=== PATIENT | male | born 1960 | race Caucasian/White ===

== ENCOUNTER 2025-03-15 09:15 | Outpatient (CLI) | payer OTHER, MEDICARE, SELFPAY ==
--- OUTSIDE RECORDS SUMMARY | 2025-03-15 09:46 | XMS_ITS | Encounter Summary ---
Author Organization [facility] Address [address] [place] [address] Care Team Providers Care Link Machine Operator Name Role Phone None, Provider Primary Care Provider Unavaila Vitaliy Torre MD Primary Care Provider [phone] Shereen Allison MD Unavailable Unavailabl e Fiona Gutierrez MD Unavailable Encounter Details Date Type Department Care Team (Late st Contact Info) Description 11/02/2017 Abstract [facility] CONVERSION [address] [place], [place] [id number] , Generic ConversionMD Social History Tobacco Use Types Packs/Day Years Used Date Smoking Tobacco: Never Assessed Sex and Gender Information Value Date Recorded Sex Assigned at Not on file Legal Sex Male 11:12 PM [employer] Gender Identity Not on file Sexual Orientation Not on file documented as of this encounter Plan of Treatment Not on file documented as of this encounter Visit Diagnoses Not on filedocumented in this encounter Care Teams Link Machine Operator Relationship Specialty Start Date End Date None, Provider, PCP - General 12/17/18 04/27/21 Vitaliy Garrett MD [address] [place] [phone] PCP - General INTERNAL MEDICINE 04/28/21 Shereen Allison MD [address] [place] [phone] Consulting Physician CARDIOVASCULAR DISEASE 04/28/2106/19 Fiona Gutierrez MD [address] [place] [phone] Consulting Physician CARDIOVASCULAR DISEASE 07/08/24 documented as of this encounter
--- OUTSIDE RECORDS SUMMARY | 2025-03-15 09:46 | XMS_ITS | Encounter Summary ---
Author Organization [facility] Address [address] [place] [address] Care Team Providers Care President Educational Institution Name Role Phone Unavailable Primary Care Provider Unavailabl e Encounter Details Date Type Department Care Team (Late st Contact Info) Description 08/15/2020 Lab Requisition [facility] [address] [facility] [place] [id number] Rick Barreto Jr., MD [address] [facility] [address] [place] [address] Social History Tobacco Use Types Packs/Day Years Used Date Smoking Tobacco: Never Assessed Sex and Gender Information Value Date Recorded Sex Assigned at Not on file Legal Sex Male 12:22 PM CDT Gender Identity Not on file Sexual Orientation Not on file documented as of this encounter Plan of Treatment Not on file documented as of this encounter Procedures Procedure Name Priority Date/Time Associated Diagnosis Comments DERMATOPATHOLOGY Routine 08/10/2020 12:0 0 AM [employer] documented in this encounter Results * DERMATOPATHOLOGY (08/10/2020 12:00 AM DEVIL [facility]ENDER) Case Report Dermatopathology Report Case: [id number] Authorizing Provider: Rick Barreto Jr., MD Collected: 08/10/2020 12:00 AM Ordering Location: [facility] Received: 08/15/2020 12:01 PM Pathologist: Sonia Snow MD Specimen: Skin, right ulnar dorsal hand 0 4:28 PM [facility] DERMATOPATH[facility]Y LABORATORY Final Diagnosis Specimen A. 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 Check margins. Previous Bx: [id number]. . 0 4:28 PM [facility]ORAT[facility] Gross Description Specimen A: Received is one formalin filled container labeled with the patient's name and designated right ulnar dorsal hand.The specimen consists of an ellipse measuring 10w52l0gs and is oriented with the notch at the 12 o'clock position labeled on the requisition as notch at 12 o'clock. The epidermal surface consists of a centrally located [id number] lesion. The 12 to 6 o'clock margin is inked green. The 6 o'clock to 12 o'clock margin is inked black. The 12 o'clock tip is submitted in cassette 1. The 6 o'clock tip is submitted in cassette 2. The remainder of the ellipse is serially sectioned and submitted in cassettes 3-4. Jar 0. 0 4:28 PM [facility] DER[facility]Y [facility]OR[facility]ORY Microscopic Description Specimen A. SKIN, right ulnar dorsal hand: The epidermis shows parakeratosis, full thickness disorderly maturation of keratinocytes, mitoses at different levels, and dyskeratotic cells. This lesion is not present at the margin of the specimen. There are fibroblasts and collagen bundles oriented parallel to the skin surface with elongated blood vessels, some of which are oriented perpendicular to the skin surface. 0 4:28 PM [facility]ERMATOPATHOLOGY [facility]ORATORY Disclaimer An external and internal positive and negative controls are appropriate for the histochemical, immunohistochemical and immunofluorescence stain(s) in this case (if any), except where stated explicitly. The performance characteristics of the stain(s) cited in this report were developed and its performance characteristic determined by the Dermatopathology Laboratory at [facility], directed by Dr. Janeth Snow. These tests need not be, and therefore are not, approved by the [place] Food and Drug Administration. The tests are used for clinical purposes. Billing Codes Specimen Charges Stain Charges 640[address] 1 0 4:28 PM [facility]MAT[facility]ATH[facility]Y [facility]ORATORY Embedded Images 0 4:28 PM [facility]Y LABOR[facility]ORY Pathology/Cytolog y TISSUE SPECIMEN FROM SKIN / Unknown 08/10/2020 08/15/2020 12:01 PM DEVIL T[employer]ER us Rick Barreto Jr., MD LAB - PATHOLOGY/CYTOLOG Y ORDERABLES Final Result DERMATOPATHOLOGY LABORATORY [facility] - Department of Dermatology [facility] [address] [place] [address], [address] [phone] documented in this encounter Visit Diagnoses Not on filedocumented in this encounter
--- OUTSIDE RECORDS SUMMARY | 2025-03-15 09:46 | XMS_ITS | Encounter Summary ---
Author Organization [facility] Address [address] [place] [address] Care Team Providers Care Powerhouse Mechanic Apprentice Name Role Phone Unavailable Primary Care Provider Unavailabl e Encounter Details Date Type Department Care Team (Late st Contact Info) Description 02/12/2024 Lab Requisition [facility] - DermPath Lab [address] [place] [id number] Rick Barreto Jr., MD [address] [facility] [address] [place] [address] Social History Tobacco Use Types Packs/Day Years [...] Priority Date/Time Associated Diagnosis Comments DERMATOPATHOLOGY Routine 02/11/2024 12:0 0 AM CDT documented in this encounter Results * DERMATOPATHOLOGY (02/11/2024 12:00 AM CDT) Case Report Dermatopathology Report Case: [id number] Authorizing Provider: Rick Barreto Jr., MD Collected: 02/11/2024 12:00 AM Ordering Location: [facility] Physician [facility] - Received: 02/12/2024 12:52 PM DermPath Lab Pathologist: Keshia Dominguez MD Specimens: A) - Skin, right ulnar dorsal hand B) - Skin, left medial elbow 3:51 PM CDT DERMATOPATHOLOGY LABORATORY Final Diagnosis Specimen A. SKIN, right ulnar dorsal hand: DERMAL SCAR RESIDUAL SQUAMOUS CELL CARCINOMA NOT IDENTIFIED (L90.5) ACTINIC KERATOSIS; NOT PRESENT AT MARGIN (L57.0) Specimen B. SKIN, left medial elbow: SQUAMOUS CELL CARCINOMA, WELL DIFFERENTIATED (C44.629) 4 3:51 PM CDT DERMATOPATHOLOGY LABORATORY at 1551 CDT Clinical History A: SCC. Check margins B: SCC 4 3:51 PM CDT DERMATOPATHOLOGY LABORATORY Gross Description Specimen A: Received is one formalin filled container labeled with the patient's name and designated right ulnar dorsal hand.The specimen consists of an ellipse measuring 55h93c5 mm and is oriented with the suture/notch at the 12 o'clock position labeled on the requisition as notch. The 12 to 6 o'clock margin is inked green. The 6 o'clock to 12 o'clock margin is inked red. The 12 o'clock tip is submitted in cassette 1. The 6 o'clock tip is submitted in cassette 2. The remainder of the ellipse is serially sectioned and submitted in cassettes 3-4. Jar 0. Specimen B: Received is one formalin filled container labeled with the patient's name and designated left medial elbow. The specimen consists of a shave biopsy measuring 42h84p4 mm. Jar 0. 4 3:51 PM CDT DERMATOPATHOLOGY LABORATORY Microscopic Description Specimen A. SKIN, right ulnar dorsal hand: There are fibroblasts and collagen bundles oriented parallel to the skin surface. There are elongated blood vessels, some of which are oriented perpendicular to the skin surface. No residual squamous cell carcinoma is identified. Additionally, there is focal parakeratosis. The lower half of the epidermis shows disorderly maturation of keratinocytes with nuclear pleomorphism. This lesion is not present at the margin of the specimen. Specimen B. SKIN, left medial elbow: Sections show digitated epidermal hyperplasia with hypergranulosis in the dells between papillations containing a proliferation of atypical keratinocytes. 4 3:51 PM CDT DERMATOPATHOLOGY LABORATORY Disclaimer An external and internal positive and negative controls are appropriate for the histochemical, immunohistochemical and immunofluorescence stain(s) in this case (if any), except where stated explicitly. The performance characteristics of the stain(s) cited in this report were developed and its performance characteristic determined by the Dermatopathology Laboratory at [facility], directed by Dr. Janeth Snow. These tests need not be, and therefore are not, approved by the [place] Food and Drug Administration. The tests are used for clinical purposes. Billing Codes Specimen Charges Stain Charges 55428 55934 1 1 4 3:51 PM CDT DERMATOPATHOLOGY LABORATORY Embedded Images 4 3:51 PM CDT DERMATOPATHOLOGY LABORATORY Pathology/Cytology TISSUE SPECIMEN FROM SKIN / Unknown 02/11/2024 02/12/2024 12:52 PM CDT Miscellaneous samples (specimen) TISSUE SPECIMEN FROM SKIN / Unknown 02/11/2024 02/12/2024 12:52 PM CDT Rick Barreto Jr., MD LAB - PATHOLOGY/CYTOLOG Y ORDERABLES Final Result DERMATOPATHOLOGY LABORATORY [facility] - Department of Dermatology [facility] Medicine [address] [place] [address], [address] [phone] documented in this encounter Visit Diagnoses Not on filedocumented in this encounter
--- OUTSIDE RECORDS SUMMARY | 2025-03-15 09:46 | XMS_ITS | Clinical Summary ---
Author Organization [facility] Address [address] [place] [address] Care Team Providers Care Chinese Language Professor Name Role Phone Unavailable Primary Care Provider Unavailabl e Source Comments [facility],non-owned Affiliates and Associated Physician Practices is amultiple site organization consisting of ambulatory clinics and hospital sitesin [place], [place], [place] and [place]. This disclosure is being madepursuant to the Care Everywhere program and may not contain all information available regarding this patient. Last updated 18.[facility] Social History Tobacco Use Types Packs/Day Years Used Date Smoking Tobacco: Never Assessed Sex and Gender Information Value Date Recorded Sex Assigned at Not on file Legal Sex Male 12:22 PM CDT Gender Identity Not on file Sexual Orientation Not on file Plan of Treatment Health Maintenance Due Date Last Done Comments COLOGUARD (AGES 45-75) - COL ON CA SCREENING 1962 COLON MONITORING 1962 COLONOSCOPY - COLON CA SCREENING 1962 CT COLONOGRAPHY - COLON CA SCREENING 1962 Colorectal Cancer Screening 1962 FIT - COLON CA SCREENING 1962 FLEX SIG - COLON CA SCREENING 1962 LIPID TESTING 1962 MEDICARE AWV 12 MONTHS 1962 HIV SCREENING 1977 HEPATITIS C SCREENING 11/18/1980 DTAP/TDAP/TD VACCINES (1 - Tdap) 1981 PNEUMOCOCCAL VACCINE 50+ (1 of 1 - PCV) 2012 ZOSTER VACCINE (1 of 2) 2012 COVID-19 VACCINE ( - 2023-2 5 season) 2024 DEPRESSION SCREENING 08/19/2024 INFLUENZA VACCINE (#1) 2025 Respiratory Syncytial Virus (RSV) Vaccine Pt: or over 60 yrs (1 - 1-dose 75+ series) 2037 HEPATITIS B VACCINE Aged Out No longe r eligible based on patient's age to complete this topic HIB VACCINE Aged Out No longer eligi ble based on patient's age to complete this topic HPV VACCINE Aged Out No longer eligi ble based on patient's age to complete this topic MENINGOCOCCAL (Group B) VACC INE SHARED DECISION-MAKING Aged Out No longer eligibl e based on patient's age to complete this topic MENINGOCOCCAL GROUPS A/C/Y/W VACCINE Aged Out No longer eligible b ased on patient's age to complete this topic Insurance AET MEDICARE
--- OUTSIDE RECORDS SUMMARY | 2025-03-15 09:46 | XMS_ITS | Encounter Summary ---
Author Organization [facility] Address [address] [place] [address] Care Team Providers Care Assembly Department Supervisor Name Role Phone Unavailable Primary Care Provider Unavailabl e Encounter Details Date Type Department Care Team (Late st Contact Info) Description 07/07/2020 Lab Requisition [facility] DermPath Lab [address] [facility] [place] [phone] Rick Barreto Jr., MD [address] [facility] [address] [place] [address] Social History Tobacco Use Types Packs/Day Years [...] Priority Date/Time Associated Diagnosis Comments DERMATOPATHOLOGY Routine 07/06/2020 12:0 0 AM INTERNATIONAL MARKETING SPECIALIST documented in this encounter Results * DERMATOPATHOLOGY (07/06/2020 12:00 AM INTERNATIONAL MARKETING SPECIALIST) Case Report Dermatopathology Report Case: [id number] Authorizing Provider: Rick Barreto Jr., MD Collected: 07/06/2020 12:00 AM Ordering Location: [facility] DermPath Lab Received: 07/07/2020 12:59 PM Pathologist: Mansi Dominguez MD Specimens: A) - Skin, right distal radial dorsal forearm B) - Skin, right radial dorsal hand C) - Skin, right ulnar dorsal hand 0 6:46 PM INTERNATIONAL MARKETING SPECIALIST DERMATOPATHOLOGY LABORATORY Final Diagnosis Specimen A. SKIN, right distal radial dorsal forearm: DERMAL SCAR RESIDUAL SQUAMOUS CELL CARCINOMA NOT IDENTIFIED (L90.5) Specimen B. SKIN, right radial dorsal hand: SQUAMOUS CELL CARCINOMA IN SITU (VALENCIA'S DISEASE) (D04.61) Specimen C. SKIN, right ulnar dorsal hand: SQUAMOUS CELL CARCINOMA IN SITU, VERRUCOUS-HYPERTROP HIC TYPE; PRESENT AT THE BASE OF THE SPECIMEN (D04.61) (see microscopic description and comment) 0 6:46 PM [facility] at 1845 INTERNATIONAL MARKETING SPECIALIST Clinical History A: Squamous cell carcinoma. Check margins. Previous Bx: [id number]. B-C: Squamous cell carcinoma vs actinic keratosis. . 0 6:46 PM [facility] Gross Description Specimen A: Received is one formalin filled container labeled with the patient's name and designated right distal radial dorsal forearm.The specimen consists of an ellipse measuring 94b85c8tm and is oriented with the notch at the 9 o'clock position labeled on the requisition as notch at 9 o'clock. The epidermal surface consists of a centrally located 8x8mm previous biopsy site. The 12 to 6 o'clock margin is [...] with the patient's name and designated right radial dorsal hand. The specimen consists of a shave biopsy measuring 40q5l0cq. Jar 0. Specimen C: Received is one formalin filled container labeled with the patient's name and designated right ulnar dorsal hand. The specimen consists of a shave biopsy measuring 99z0p0jn. Jar 0. 0 6:46 PM [facility] Microscopic Description Specimen A. SKIN, right distal radial dorsal forearm: There are fibroblasts and collagen bundles oriented parallel to the skin surface. There are elongated blood vessels, some of which are oriented perpendicular to the skin surface. No residual squamous cell carcinoma is identified. Specimen B. SKIN, right radial dorsal hand: The epidermis shows parakeratosis, full thickness disorderly maturation of keratinocytes, mitoses at different levels, and dyskeratotic cells. Specimen C. SKIN, right ulnar dorsal hand: The epidermis is acanthotic and shows full thickness disorderly maturation of keratinocytes, mitoses at different levels, and dyskeratotic cells. There is overlying parakeratosis and hyperkeratosis. The lesion extends to the base of the biopsy. COMMENT: An invasive squamous cell carcinoma cannot be ruled out. 0 6:46 PM INTERNATIONAL MARKETING SPECIALIST DERMATOPATHOLOGY LABORATORY Disclaimer An external and internal positive and negative controls are appropriate for the histochemical, immunohistochemical and immunofluorescence stain(s) in this case (if any), except where stated explicitly. The performance characteristics of the stain(s) cited in this report were developed and its performance characteristic determined by the Dermatopathology Laboratory at [facility], directed by Dr. Janeth Snow. These tests need not be, and therefore are not, approved by the [place] Food and Drug Administration. The tests are used for clinical purposes. Billing Codes Specimen Charges Stain Charges 00339 80486 42503 1 1 1 0 6:46 PM INTERNATIONAL MARKETING SPECIALIST DERMATOPATHOLOGY LABORATORY Embedded Images 0 6:46 PM INTERNATIONAL MARKETING SPECIALIST DERMATOPATHOLOGY LABORATORY Pathology/Cytology TISSUE SPECIMEN FROM SKIN / Unknown 07/06/2020 07/07/2020 12:59 PM INTERNATIONAL MARKETING SPECIALIST Miscellaneous samples (specimen) TISSUE SPECIMEN FROM SKIN / Unknown 07/06/2020 07/07/2020 12:59 PM INTERNATIONAL MARKETING SPECIALIST Miscellaneous samples (specimen) TISSUE SPECIMEN FROM SKIN / Unknown 07/06/2020 07/07/2020 12:59 PM INTERNATIONAL MARKETING SPECIALIST us Rick Barreto Jr., MD LAB - PATHOLOGY/CYTOLOG Y ORDERABLES Final Result DERMATOPATHOLOGY LABORATORY [facility] - Department of Dermatology [address], [address]rd [place] [address], [facility] [phone] documented in this encounter Visit Diagnoses Not on filedocumented in this encounter
--- OUTSIDE RECORDS SUMMARY | 2025-03-15 09:46 | XMS_ITS | Encounter Summary ---
Author Organization [facility] Address [address] [place] [address] Care Team Providers Care Chicken And Fish Cleaner Name Role Phone Unavailable Primary Care Provider Unavailabl e Encounter Details Date Type Department Care Team (Late st Contact Info) Description 04/15/2024 Lab Requisition [facility] - DermPath Lab [address] [facility] [place] [phone] Rick Barreto Jr., MD [address] [facility] [address] [facility] [address] [place] [address] Social History Tobacco Use Types Packs/Day Years [...] Priority Date/Time Associated Diagnosis Comments DERMATOPATHOLOGY Routine 04/14/2024 12:0 0 AM CDT documented in this encounter Results * DERMATOPATHOLOGY (04/14/2024 12:00 AM CDT) Case Report Dermatopathology Report Case: [id number] Authorizing Provider: Rick Barreto Jr., MD Collected: 04/14/2024 12:00 AM Ordering Location: [facility] Physician [facility] - Received: 04/15/2024 01:09 PM DermPath Lab Pathologist: Keshia Dominguez MD Specimen: Skin, left medial elbow 4:14 PM CDT DERMATOPATHOLOGY LABORATORY Final Diagnosis Specimen A. SKIN, left medial elbow: DERMAL SCAR RESIDUAL SQUAMOUS CELL CARCINOMA NOT IDENTIFIED (L90.5) INCIDENTAL BENIGN VERRUCOUS KERATOSIS (L82.1) 4 4:14 PM CDT DERMATOPATHOLOGY LABORATORY at 1614 CDT Clinical History Squamous Cell Carcinoma Check margin , 4:14 PM CDT DERMATOPATHOLOGY LABORATORY Gross Description Specimen A: Received is one formalin filled container labeled with the patient's name and designated left medial elbow.The specimen consists of an ellipse measuring 11u99d5 mm and is oriented with the suture/notch at the 12 o'clock position labeled on the requisition as Orientation notch. The 12 to 6 o'clock margin is inked green. The 6 o'clock to 12 o'clock margin is inked red. The 12 o'clock tip is submitted in cassette 1. The 6 o'clock tip is submitted in cassette 2. The remainder of the ellipse is serially sectioned and submitted in cassettes 3 -4. Jar 0. 4:14 PM CDT DERMATOPATHOLOGY LABORATORY Microscopic Description Specimen A. SKIN, left medial elbow: There are fibroblasts and collagen bundles oriented parallel to the skin surface. There are elongated blood vessels, some of which are oriented perpendicular to the skin surface. No residual squamous cell carcinoma is identified. Additionally, there is a lesion composed of hyperkeratosis, papillomatosis, hypergranulosis, and acanthosis. These histological findings can be seen in a verruca vulgaris or a seborrheic keratosis. 4:14 PM CDT DERMATOPATHOLOGY LABORATORY Disclaimer An external and internal positive and negative controls are appropriate for the histochemical, immunohistochemical and immunofluorescence stain(s) in this case (if any), except where stated explicitly. The performance characteristics of the stain(s) cited in this report were developed and its performance characteristic determined by the Dermatopathology Laboratory at [facility], directed by Dr. Janeth Snow. These tests need not be, and therefore are not, approved by the [place] Food and Drug Administration. The tests are used for clinical purposes. Billing Codes Specimen Charges Stain Charges 72707 1 4:14 PM CDT DERMATOPATHOLOGY LABORATORY Embedded Images 4:14 PM CDT DERMATOPATHOLOGY LABORATORY Pathology/Cytolog y TISSUE SPECIMEN FROM SKIN / Unknown 04/14/2024 04/15/2024 1:09 PM CDT us Rick Barreto Jr., MD LAB - PATHOLOGY/CYTOLOG Y ORDERABLES Final Result DERMATOPATHOLOGY LABORATORY [facility] - Department of Dermatology [facility] Medicine [address] [place] [address], [address] [phone] documented in this encounter Visit Diagnoses Not on filedocumented in this encounter
--- OUTSIDE RECORDS SUMMARY | 2025-03-15 09:46 | XMS_ITS | Encounter Summary ---
Author Organization [facility] Address [address] [place] [address] Care Team Providers Care Wood Turning Lathe Operator Name Role Phone Ismael Smith MD Primary Care Provider [phone] Encounter Details Date Type Department Care Team (Latest Contact Info) Description 09/16/2002 Outpatient Historical [facility] Ismael Smith MD [address] [place] [address] SURGERY FOLLOWUP, OTHER (Primary Dx) Social History Tobacco Use Types Packs/Day Years Used Date Smoking Tobacco: Never Assessed Sex and Gender Information Value Date Recorded Sex Assigned at Not on file Legal Sex Male 4:52 AM DRAFTER (CAD) ELECTRICAL Gender Identity Not on file Sexual Orientation Not on file documented as of this encounter Plan of Treatment Not on file documented as of this encounter Visit Diagnoses Diagnosis Follow-up examination, following other surgery- Primary documented in this encounter Care Teams Wood Turning Lathe Operator Relationship Specialty Start Date End Date Ismael Smith MD [address] [place] [address] PCP - General 09/16/02 documented as of this encounter
--- OUTSIDE RECORDS SUMMARY | 2025-03-15 09:46 | XMS_ITS | Data Portability ---
Author Organization [facility], [address] [facility] Neurology ([place]) Address [address]th [place] [address] Care Team Providers Care Laser Set Up Operator Name Role Phone JENNI VENTURA Primary Care Provider [phone] Assessment Encounter Date Assessment Date Assessment LastModified by Organization Details LastModified Time 07/24/2024 07/24/2024 Patient is a 63-year-old male who has had a previous umbilical hernia repair. Patient with a blue stitch identified extruding from the skin. Stitch was removed in the office today. Patient to follow-up on an as-needed basis. [email or web address] Not available 07/27/2024 00:23:33 Plan of Treatment Reminders Order Date Submit Date Provider Last Modified By Organization Details Last Modified Time Details Appointments None record ed. Lab None record ed. Referral None record ed. Procedures None record ed. Surgeries None record ed. Imaging None record ed. Medication Orders None record ed. Patient TargetsNo targets recorded. Patient InstructionsNo instructions recorded. Reason for Referral None Reported. Medical Equipment None Reported. Vitals Date Recorded Body weight Heart rate Oxygen saturation Oxygen saturation in Arterial blood by Pulse oximetry Respiratory rate Systolic And Diastolic Provider Name and Address Organization Details Last Updated DateTime 4 52368.0 7 g 96 /min 97 % 97 % 18 /min 128/70 mm[Hg] Kimberly Madrigal [facility] 4 10:30:26 Social History None recorded. Functional Status None recorded. Mental Status None recorded. Family History Nothing Reported. Medical History No medical history recorded. Past Encounters Encounter ID Performer Location Encounter Start Date Encounter Closed Date Diagnosis/Indication Diagnosis SNOMED-CT Code Diagnosis ICD10 Code Diagnosis Note [id number] [facility] ([place] [address] [place] [address] 07/24/2024 10:17:57 07/24/2024 13:01:53 History of abdominal hernia 605074112 Z87.19 Health Concerns Section Related Observation LastModified by Organization Detai ls LastModified Time None Recorded Concern Status LastModified by Organization Details LastModified Time None Recorded Advance Directives Directive None Recorded Payers Insurance Date Sequence Insurance Name Policy Number Policy Marroquin Covered Member ID Marroquin Member ID Guarantor Name 07/28/2024 1 [id number] Salvador W Adrian [id number] Salvador W Adrian 07/24/2024 2 [place] Salvador W Adrian [id number] Salvador W Darian 07/28/2024 [place] - [place] - FQHC Salvador W Adrian [id number] Salvador Figueroa Adrian
--- OUTSIDE RECORDS SUMMARY | 2025-03-15 09:46 | XMS_ITS | Clinical Summary ---
Author Organization [facility] Address [address] [facility], [place] [address] Phone Care Team Providers Care Sheet Metal Layout Mechanic Name Role Phone Vitaliy Garrett MD Primary Care Provider [phone] Roby Gaxiola MD Unavailable Allergies No known active allergies Medications azaTHIOprine (IMURAN) 50 MG Tablet Take 50 mg by mouth daily. Active amLODIPine (NORVASC) 10 MG Tablet Take 10 mg by mouth daily. Active traMADol (ULTRAM) 50 MG Tablet Take 50 mg by mouth every 6 hours as needed for Pain. Active HYDROcodone-ena taminophen (NORCO) 10-325 MG Tablet Take 1 Tab by mouth every 6 hours as needed for Pain. Active inFLIXimab (REMICADE) 100 MG Recon Soln 5 mg/kg by Intravenous route once. FOLLOW STANDING ORDER PROTOCOL 8 weeks Active Active Problems Problem Noted Date Diagnosed Date Sarcoid 06/10/2017 Essential (primary) hypertension 06/10/2017 Chronic ulcerative colitis without complication 06/10/2017 Family History Medical History Relation Name Comments Cancer Father Breast Cancer Mother Relation Name Status Comments Father Mother Social History Tobacco Use Types Packs/Day Years Used Date Smoking Tobacco: Former Smokeless Tobacco: Never Tobacco Cessation:Counseling Given: Not Answered Alcohol Use Standard Drinks/Week Comments No 0 (1 standard drink = 0.6 oz pur e alcohol) Sexually Active Control Partners Comments Not Currently Sex and Gender Information Value Date Recorded Sex Assigned at Not on file Legal Sex Male 1:36 PM CDT Gender Identity Not on file Sexual Orientation Not on file Last Filed Vital Signs Vital Sign Reading Time Taken Comments Blood Pressure 114/60 04/08/2023 2:49 PM CDT Pulse 99 04/08/2023 2:49 PM CDT Temperature 36.3 C (97.3 F) 04/08/2023 2:49 PM CDT Respiratory Rate 14 04/08/2023 2:49 PM CDT Oxygen Saturation 96% 04/08/2023 2:49 PM CDT Inhaled Oxygen Concentration - - Weight 76.7 kg (169 lb 3.2 oz) 04/08/2023 2:49 P M CDT Height 182.9 cm (6') 04/08/2023 2:49 PM CDT Body Mass Index 22.95 04/08/2023 2:49 PM CDT Plan of Treatment Health Maintenance Due Date Last Done Comments Hepatitis C Virus (HCV) Screening 1962 Zoster Immunization (1 of 2) 1981 Cologuard 11/24/2007 Colonoscopy 11/24/2007 Colorectal Cancer Screening 11/24/2007 Immunochemical Fecal Occult Blood 11/24/2007 Pneumococcal Immunization (5 0+ years) (1 of 1 - PCV) 2012 PSA Discussion 2017 Respiratory Syncytial Virus (RSV) Immunization (Adult) (1 - Risk 60-74 years 1-dose series) 2022 SARS-COV-2 Immunization ( season) 2024 07/19/2021, 11/16/2020 Influenza Immunization (#1) 2025 DTaP/Tdap/Td Immunization Discontinued 2022, 02/01/2017 TdaP Immunization Completed 02/08/2023, 02/01/2017 Hepatitis B Immunization Aged Out No longer eligible based on patient's age to complete this topic Human Papillomavirus (HPV) Immunization Aged Out No longer eligible based on patient's age to complete this topic Meningococcal Immunization (ACWY) Aged Out No longer eligible based on patient's age to complete this topic Rotavirus Immunization Aged Out No lo nger eligible based on patient's age to complete this topic Insurance MEDICARE [facility] Care Teams Sheet Metal Layout Mechanic Relationship Specialty Start Date End Date Vitaliy Garrett MD [address] [place] [id number] PCP - General Internal Medicine 06/10/17 Roby Gaxiola MD [address] [place] [id number] Consulting Physician Pulmonary Disease 05/25/23
--- OUTSIDE RECORDS SUMMARY | 2025-03-15 09:46 | XMS_ITS | Encounter Summary ---
Author Organization [facility] Address [address] [place] [address] Care Team Providers Care Account Development Manager Name Role Phone Unavailable Primary Care Provider Unavailabl e Encounter Details Date Type Department Care Team (Late st Contact Info) Description 10/16/2023 Lab Requisition [facility] - DermPath Lab [address] [facility] [place] [id number] Rick Barreto Jr., MD [address] [facility] [address] [place] [address] Social History Tobacco Use Types Packs/Day Years [...] Priority Date/Time Associated Diagnosis Comments DERMATOPATHOLOGY Routine 10/15/2023 12:0 0 AM [facility]ER documented in this encounter Results * DERMATOPATHOLOGY (10/15/2023 12:00 AM [facility]ER) Case Report Dermatopathology Report Case: [id number] Authorizing Provider: Rick Barreto Jr., MD Collected: 10/15/2023 12:00 AM Ordering Location: [facility] DermPath Lab Received: 10/17/2023 06:45 AM Pathologist: Keshia Dominguez MD Specimens: A) - Skin, left mid-upper back B) - Skin, right ulnar dorsal hand 12:12 PM [facility] DERMATOPATHOLOGY LABORATORY Final Diagnosis Specimen A. SKIN, left mid-upper back: BASAL CELL CARCINOMA, SUPERFICIAL MULTIFOCAL (C44.519) Specimen B. SKIN, right ulnar dorsal hand: SQUAMOUS CELL CARCINOMA, WELL DIFFERENTIATED (C44.622) 12:12 PM [facility]MATOP[facility]ORATORY at 1212 [facility]ER Clinical History A: Basal Cell Carcinoma. B: Squamous Cell Carcinoma 12:12 PM [facility] DERMATOPATHOLOGY LABORATORY Gross Description Specimen A: Received is one formalin filled container labeled with the patient's name and designated left mid-upper back. The specimen consists of a shave biopsy measuring 10x8x1 mm. Jar 0. Specimen B: Received is one formalin filled container labeled with the patient's name and designated right ulnar dorsal hand. The specimen consists of a shave biopsy measuring 10x9x3 mm. Jar 0. 12:12 PM [facility] DERMATOPATHOLOGY LABORATORY Microscopic Description Specimen A. SKIN, left mid-upper back: Attached to the undersurface of the epidermis, there are small aggregates of basaloid cells with a high nuclear to cytoplasmic ratio and peripheral palisading. Specimen B. SKIN, right ulnar dorsal hand: Sections show a papillated to crateriform proliferation of atypical keratinocytes with central and overlying ortho- and parakeratosis. Keratinocytes with atypical nuclei are scattered throughout the proliferation. 12:12 PM [facility] DERMATOPATHOLOGY LABORATORY Disclaimer An external and internal positive and negative controls are appropriate for the histochemical, immunohistochemical and immunofluorescence stain(s) in this case (if any), except where stated explicitly. The performance characteristics of the stain(s) cited in this report were developed and its performance characteristic determined by the Dermatopathology Laboratory at [facility], directed by Dr. Janeth Snow. These tests need not be, and therefore are not, approved by the [place] Food and Drug Administration. The tests are used for clinical purposes. Billing Codes Specimen Charges Stain Charges 11236 72193 1 1 12:12 PM [facility] DERMATOPATHOLOGY LABORATORY Embedded Images 12:12 PM [facility] DERMATOPATHOLOGY LABORATORY Pathology/Cytology TISSUE SPECIMEN FROM SKIN / Unknown 10/15/2023 10/17/2023 6:45 AM [facility] Miscellaneous samples (specimen) TISSUE SPECIMEN FROM SKIN / Unknown 10/15/2023 10/17/2023 6:45 AM [facility] Rick Barreto Jr., MD LAB - PATHOLOGY/CYTOLOG Y ORDERABLES Final Result DERMATOPATHOLOGY LABORATORY [facility] - Department of Dermatology [facility] Medicine [address] [place] [address], [address] [phone] documented in this encounter Visit Diagnoses Not on filedocumented in this encounter
--- OUTSIDE RECORDS SUMMARY | 2025-03-15 09:46 | XMS_ITS | Clinical Summary ---
Author Organization [facility] Address [address] [place] [address] Care Team Providers Care Photographic Artist Name Role Phone Vitaliy Garrett MD Primary Care Provider Fiona Gillis MD Unavailable Allergies Active Allergy Reactions Criticality Noted Date Comments Isosorbide Nitrate Unknown 05/10/2021 Medications HYDROcodone-a cetaminophen 10-325 MG tablet Take 1 tablet by mouth every 4 (four) hours as needed. 10/25/19 21 Active azaTHIOprine 50 MG tablet Take 2 tablets (100 mg total) by mouth daily. Active sildenafil 100 MG tablet TAKE ONE TABLET BY MOUTH EACH DAY NEEDED APPROXIMATELY 1 HOUR PRIOR TO SEXUAL ACTIVITY 01/11/20 21 Active omeprazole 40 MG capsule Take 1 capsule (40 mg total) by mouth daily. Take before a meal 01/11/20 21 Active traMADol 50 MG tablet Take as directed 10/25/19 21 Active inFLIXimab (REMICADE) 100 MG injection Inject 5 mg/kg into the vein once. Infuse (5mg/kg) by IV route every 8 weeks Active aspirin EC 81 MG tablet Take 1 tablet (81 mg total) by mouth daily. 30 tablet 06/02/20 21 Active ALPRAZolam 0.25 MG tablet Take as directed 10/13/19 22 Active ondansetron 4 MG tablet Take 1 tablet (4 mg total) by mouth every 8 (eight) hours as needed. FOR NAUSEA 06/28/20 21 Active rosuvastatin (CRESTOR) 10 MG tablet Take 1 tablet (10 mg total) by mouth daily. 90 tablet 04/07/20 24 Active ranolazine ER 1000 MG TABLET SR 12 HR 12 hr tablet take one tablet by mouth twice daily 60 tablet 10 05/12/20 24 Active losartan (COZAAR) 100 MG tablet Take 0.5 tablets (50 mg total) by mouth daily. 45 tablet 6 03/08/20 25 Active NIFEdipine XL (PROCARDIA XL) 60 MG 24 hr tablet TAKE ONE TABLET BY MOUTH DAILY 90 tablet 03/08/20 25 Active NIFEdipine XL (PROCARDIA XL) 60 MG 24 hr tablet Take 1 tablet (60 mg total) by mouth daily. 90 tablet 04/07/20 24 025 Discontinued losartan (COZAAR) 100 MG tablet Take 1 tablet (100 mg total) by mouth daily. 90 tablet 04/07/20 24 025 Discontinued Active Problems Problem Noted Date Diagnosed Date Hyperlipidemia, unspecified hyperlipidemia type 01/07/2023 Coronary artery spasm 05/22/2021 Chronic ulcerative colitis w ithout complication ([facility]) 06/10/2017 Essential (primary) hypertension 06/10/2017 Sarcoid 06/10/2017 Encounters Date Type Department Care Team Description 01/12/2025 Telephone [facility] [address] [place] [address] Fiona Gillis MD Called To Cancel Office Appt. (Has to work ) 01/08/2025 Orders Only [facility] [address] [place] [address] Fiona Gillis MD 01/06/2025 8:43 AM CDT - 01/06/2025 11:59 PM CDT Hospital Encounter [facility] Non Invasive Cardiology - [facility] [address] [place] [address] Fiona Gillis MD Discharge Disposition: Home or Self Care (Routine Discharge) 01/06/2025 Travel from Last 3 Months Family History Medical History Relation Comments Lung Cancer Father Breast Cancer Mother Lung Cancer Mother Cancer Other brain Relation Status Comments Father Mother Other Alive Social History Tobacco Use Types Packs/Day Years Used Date Smoking Tobacco: Former Cigarettes Alcohol Use Standard Drinks/Week Comments Yes 0 (1 standard drink = 0.6 oz pur e alcohol) beer, scoially Sex and Gender Information Value Date Recorded Sex Assigned at Not on file Legal Sex Male 11:12 PM FISHER HAND LINE Gender Identity Not on file Sexual Orientation Not on file Last Filed Vital Signs Vital Sign Reading Time Taken Comments Blood Pressure 137/87 07/09/2024 3:57 PM [employer]ER [employer] LINE Pulse 113 07/09/2024 3:57 PM [employer] LINE Temperature - - Respiratory Rate 16 07/09/2024 3:57 PM [employer] [employer] LINE Oxygen Saturation 96% 07/09/2024 3:57 PM [employer]ER HAND LINE Inhaled Oxygen Concentration - - Weight 79.4 kg (175 lb) 07/09/2024 3:57 PM [employer] LINE Height 182.9 cm (6') 07/09/2024 3:57 PM FISHER HAND LINE Body Mass Index 23.73 07/09/2024 3:57 PM FISHER HAND LINE Plan of Treatment Health Maintenance Due Date Last Done Comments Colorectal Cancer Screening Colonoscopy (10 Years) 1962 Annual Physical 1965 Hepatitis C 1980 Pneumococcal Vaccine: 50+ Years (1 of 2 - PCV) 1981 Zoster Vaccines (1 of 2) 1981 ASCVD LDL 10/25/2022 10/25/2021 RSV Immunization or 60+ Years (1 - Risk 60-74 years 1-dose series) 2022 COVID-19 Vaccine (3 - 2023-2 5 season) 2024 07/19/2021, 11/16/2020 DTaP, Tdap and Td Vaccines ( 3 - Td or Tdap) 02/08/2033 02/08/2023, 02/01/2017 Meningococcal B Vaccine Aged Out No l onger eligible based on patient's age to complete this topic Meningococcal Vaccine Aged Out No glory radha eligible based on patient's age to complete this topic RSV Immunizations Under 20 Months Aged Out No longer eligible b ased on patient's age to complete this topic Procedures Procedure Name Priority Date/Time Associated Diagnosis Comments USE ECHOCARDIOGRAM Routine 01/06/2025 9: 26 AM CDT Essential (primary) hypertension LIPID PANEL Routine 10/25/2021 from Last 3 Months or Most Recently Relevant to Health Maintenance Results * USE ECHOCARDIOGRAM (01/06/2025 9:26 AM CDT) Anatomical Region Laterality Modality Cardiac Echocardiogram 01/06/2025 9:00 AM CDT Narrative 01/09/2025 11:50 AM CDT Echocardiography Report Pat.Name: SALVADOR CAMPBELL Pat.ID: [id number] .Date: 01/06/2025 Refer.: [id number], FIONA GILLIS Exam Time: 9:00:00 AM Study Type:ECHO WITH CARDIAC DOPPLER COMP Height: 180 cm Weight: 79.4 kg BSA: 1.99 m2 Age: 6 1960,64Y Sex: M BP: 137/85 HR: 102 bpm Sonogrphr: Edin Arias RDCS, RVT, RDMS Pat. Stat.:Outpatient CPT - 4: [id number] Reason for Study:Hypertensive heart disease Procedures: 2D, M-mode, Doppler, Color Flow, The study quality is technically adequate. ++++++++++++++++++++++++++++++++++++ SUMMARY: ++++++++++++++++++++++++++++++++++++ The left ventricular size is normal. The calculated ejection fraction is 65%. Left ventricular diastolic function is abnormal (grade 1 - impaired relaxation). Wall motion appears normal in all segments. The right ventricular size is normal. Right ventricular systolic function is normal. Right ventricular systolic pressure is 35 mmHg. Inferior vena cava shows >50% collapse with respiration consistent with normal right atrial pressure. Mild tricuspid regurgitation. ++++++++++++++++++++++++++++++++++++ FINDINGS: ++++++++++++++++++++++++++++++++++++ LV: The left ventricular size is normal. The left ventricular systolic function is normal. The calculated ejection fraction is 65%. There is no left ventricular hypertrophy. The lateral E/e' is normal at <8. Left ventricular diastolic function is abnormal (grade 1 - impaired relaxation). WM: Wall motion appears normal in all segments. RV: The right ventricular size is normal. Right ventricular systolic function is normal. Right ventricular systolic pressure is 35 mmHg. TAPSE = 19mm (<16 mm indicates systolic RV dysfunction). LA: The left atrial volume is normal ( less than 34 ml/M2). RA: Right atrial size is normal. SHAKEEL: No evidence of pericardial effusion. AO: Normal aortic root. PA: Estimated right atrial pressure of 3 mmHg. SVn: Inferior vena cava shows >50% collapse with respiration consistent with normal right atrial pressure. AV: The aortic valve is trileaflet. There is no aortic stenosis. There is no evidence of aortic regurgitation. MV: Structurally normal mitral valve. Trace mitral regurgitation. PV: The pulmonic valve is normal There is trace pulmonic regurgitation TV: Structurally normal tricuspid valve. Mild tricuspid regurgitation. ++++++++++++++++++++++++++++++++++++ MEASUREMENTS: ++++++++++++++++++++++++++++++++++++ DOPPLER LVOT LVOTpkPG 6 mmHg LVOTmnPG 3 mmHg LVOTpkVel 120 cm/s (70-110)* LVOT SV 64 ml LVOT TVI 18.6 cm LVOT CO 105 ml/s AV Forward Flow AV TVI 22.9 cm AV pkPG 9 mmHg AV pkVel 148 cm/s (100-170) Area (TVI) 2.81 cm2 (3-5)* AV mnVel 103 cm/s Area (Glenn) 2.81 cm2 (3-5)* AV mnPG 5 mmHg MV Forward Flow MV DeTm 239 msec MV pkE 55.3 cm/s (60-130)* MV E/A 0.8 MV pkA 67.1 cm/s TV Regurg Flow TV pkPG 32 mmHg TV pkVel 281 cm/s (30-70)+* Right Ventricle RVsys P 35 mmHg Lat E' Lat e 8.48 cm/s Lat E/E' Lat E/e 6.5 Med E' Med e 6.43 cm/s Med E/E' Med E/e 8.6 AV DI Value 0.8 DANDY (VTI) Index Value 1.4 LV Mass 2D Value 119 g LV Mass Index 2D Value 59.2 g/m2 RA Volume Atrial Rome 5 cm Atrial Rome 15.4 cm2 Atrial Rome 38.6 ml SV INDEX Value 31.8 2D Left Ventricle LVIDd 4.42 cm (3.6-5.2) LV EF(Bi-Plane) 65 % (63-77) LVIDs 2.44 cm (2.3-3.9) LVPW LVPWd 0.878 cm Ventricular Septum IVSd 0.821 cm Aorta Ao Rtd 3.4 cm (zsc 1.6) Ao Asc 3.2 cm (zsc 2.4)* LVOT LVOT 2.1 cm Ratios IVS LA Biplane LAVol I BP 28.4 ml/m2 MMODE Left Atrium LAID 4.1 cm (1.9-4)* Ratios LA/Ao 1.24 (0.87-1.1)* Aorta Ao Rt 3.3 cm (2-3.7) Tricuspid Valve TAPSE 1.9 cm <Electronic Signature> 01/09/2025 11:50 AM Fiona Gillis M.D. Procedure Note Fiona Gillis MD - 01/09/2025 Echocardiography Report Pat.Name: SALVADOR CAMPBELL Pat.ID: [id number] St.Date: 01/06/2025 Refer.: [id number], FIONA GILLIS Exam Time: 9:00:00 AM Study Type:ECHO WITH CARDIAC DOPPLER COMP Height: 180 cm Weight: 79.4 kg BSA: 1.99 m2 Age: 6 1960,64Y Sex: M BP: 137/85 HR: 102 bpm Sonogrphr: Edin Arias RDCS, RVT, RDMS Pat. Stat.:Outpatient CPT - 4: [id number] Reason for Study:Hypertensive heart disease Procedures: 2D, M-mode, Doppler, Color Flow, The study quality is technically adequate. ++++++++++++++++++++++++++++++++++++ SUMMARY: ++++++++++++++++++++++++++++++++++++ The left ventricular size is normal. The calculated ejection fraction is 65%. Left ventricular diastolic function is abnormal (grade 1 - impaired relaxation). Wall motion appears normal in all segments. The right ventricular size is normal. Right ventricular systolic function is normal. Right ventricular systolic pressure is 35 mmHg. Inferior vena cava shows >50% collapse with respiration consistent with normal right atrial pressure. Mild tricuspid regurgitation. ++++++++++++++++++++++++++++++++++++ FINDINGS: ++++++++++++++++++++++++++++++++++++ LV: The left ventricular size is normal. The left ventricular systolic function is normal. The calculated ejection fraction is 65%. There is no left ventricular hypertrophy. The lateral E/e' is normal at <8. Left ventricular diastolic function is abnormal (grade 1 - impaired relaxation). WM: Wall motion appears normal in all segments. RV: The right ventricular size is normal. Right ventricular systolic function is normal. Right ventricular systolic pressure is 35 mmHg. TAPSE = 19mm (<16 mm indicates systolic RV dysfunction). LA: The left atrial volume is normal ( less than 34 ml/M2). RA: Right atrial size is normal. SHAKEEL: No evidence of pericardial effusion. AO: Normal aortic root. PA: Estimated right atrial pressure of 3 mmHg. SVn: Inferior vena cava shows >50% collapse with respiration consistent with normal right atrial pressure. AV: The aortic valve is trileaflet. There is no aortic stenosis. There is no evidence of aortic regurgitation. MV: Structurally normal mitral valve. Trace mitral regurgitation. PV: The pulmonic valve is normal There is trace pulmonic regurgitation TV: Structurally normal tricuspid valve. Mild tricuspid regurgitation. ++++++++++++++++++++++++++++++++++++ MEASUREMENTS: ++++++++++++++++++++++++++++++++++++ DOPPLER LVOT LVOTpkPG 6 mmHg LVOTmnPG 3 mmHg LVOTpkVel 120 cm/s (70-110)* LVOT SV 64 ml LVOT TVI 18.6 cm LVOT CO 105 ml/s AV Forward Flow AV TVI 22.9 cm AV pkPG 9 mmHg AV pkVel 148 cm/s (100-170) Area (TVI) 2.81 cm2 (3-5)* AV mnVel 103 cm/s Area (Glenn) 2.81 cm2 (3-5)* AV mnPG 5 mmHg MV Forward Flow MV DeTm 239 msec MV pkE 55.3 cm/s (60-130)* MV E/A 0.8 MV pkA 67.1 cm/s TV Regurg Flow TV pkPG 32 mmHg TV pkVel 281 cm/s (30-70)+* Right Ventricle RVsys P 35 mmHg Lat E' Lat e 8.48 cm/s Lat E/E' Lat E/e 6.5 Med E' Med e 6.43 cm/s Med E/E' Med E/e 8.6 AV DI Value 0.8 DANDY (VTI) Index Value 1.4 LV Mass 2D Value 119 g LV Mass Index 2D Value 59.2 g/m2 RA Volume Atrial Rome 5 cm Atrial Rome 15.4 cm2 Atrial Rome 38.6 ml SV INDEX Value 31.8 2D Left Ventricle LVIDd 4.42 cm (3.6-5.2) LV EF(Bi-Plane) 65 % (63-77) LVIDs 2.44 cm (2.3-3.9) LVPW LVPWd 0.878 cm Ventricular Septum IVSd 0.821 cm Aorta Ao Rtd 3.4 cm (zsc 1.6) Ao Asc 3.2 cm (zsc 2.4)* LVOT LVOT 2.1 cm Ratios IVS LA Biplane LAVol I BP 28.4 ml/m2 MMODE Left Atrium LAID 4.1 cm (1.9-4)* Ratios LA/Ao 1.24 (0.87-1.1)* Aorta Ao Rt 3.3 cm (2-3.7) Tricuspid Valve TAPSE 1.9 cm <Electronic Signature> 01/09/2025 11:50 AM Fiona Gillis M.D. us Fiona Gillis MD ECHO Final Result * (ABNORMAL) LIPID PANEL (10/25/2021) CHOLESTEROL 190 0 - 199 HDL 101(A) 26 - 67 TRIGLYCERIDES 42 1 - 150 CHOL/HDL RATIO 1.9 0.0 - 4.8 LDL (CALCULATED) 81 0 - 130 10/25/2021 Patient LABORATORY Final Result from Last 3 Months or Most Recently Relevant to Health Maintenance [place] [place] [address] MEDICARE [facility] Care Teams Photographic Artist Relationship Specialty Start Date End Date Vitaliy Garrett MD [address] [place] [phone] PCP - General INTERNAL MEDICINE 04/28/21 Fiona Gillis MD [address] [place] [address] Consulting Physician CARDIOVASCULAR DISEASE 07/08/24
--- OUTSIDE RECORDS SUMMARY | 2025-03-15 09:46 | XMS_ITS | Clinical Summary ---
Author Organization [facility] Address [address] [facility] Attn: Epic Prelude ADT STEPHANIE CONNELL [address] Care Team Providers Care Cloth Winder Machine Operator Name Role Phone Ismael Smith MD Primary Care Provider [phone] Social History Tobacco Use Types Packs/Day Years Used Date Smoking Tobacco: Never Assessed Sex and Gender Information Value Date Recorded Sex Assigned at Not on file Legal Sex Male 4:52 AM IRRIGATOR Gender Identity Not on file Sexual Orientation Not on file Plan of Treatment Health Maintenance Due Date Last Done Comments DTAP/TDAP/TD VACCINES (1 - Tdap) 1981 COLORECTAL SCREENING 11/24/2007 Colorectal Cancer Screening 11/24/2007 FIT-DNA Q 3 years 11/24/2007 FIT/FOBT Q 1 year 11/24/2007 Flex Sig/CT Colonography Q 5 years 11/24/2007 ZOSTER VACCINE (1 of 2) 2012 INFLUENZA VACCINE (#1) 2025 RSV VACCINE (60+ or ) (1 - 1-dose 75+ series) 2037 Care Teams Cloth Winder Machine Operator Relationship Specialty Start Date End Date Ismael Smith MD [address] [place] [address] PCP - General 09/16/02
--- OUTSIDE RECORDS SUMMARY | 2025-03-15 09:46 | XMS_ITS | Encounter Summary ---
Author Organization [facility] Address [address] [place] [address] Care Team Providers Care Turnaround Engineer Name Role Phone Unavailable Primary Care Provider Unavailabl e Encounter Details Date Type Department Care Team (Late st Contact Info) Description 06/09/2020 Lab Requisition [facility] DermPath Lab [address] [facility] [place] [phone] Rick Barreto Jr., MD [address] [facility] [address] [facility] [address] [place] [address] Social History Tobacco Use Types Packs/Day Years [...] Priority Date/Time Associated Diagnosis Comments DERMATOPATHOLOGY Routine 06/08/2020 12:0 0 AM CDT documented in this encounter Results * DERMATOPATHOLOGY (06/08/2020 12:00 AM CDT) Case Report Dermatopathology Report Case: [id number] Authorizing Provider: Rick Barreto Jr., MD Collected: 06/08/2020 12:00 AM Ordering Location: [facility] DermPath Lab Received: 06/09/2020 01:18 PM Pathologist: Sonia Snow MD Specimens: A) - Skin, right proximal dorsal forearm B) - Skin, right proximal ulnar dorsal forearm C) - Skin, right distal radial dorsal forearm 0 1:25 PM CDT DERMATOPATHOLOGY LABORATORY Final Diagnosis Specimen A. SKIN, right proximal dorsal forearm: HEALING SKIN CHANGES (L90.5) Specimen B. SKIN, right proximal ulnar dorsal forearm: HYPERPLASTIC (HYPERTROPHIC) ACTINIC KERATOSIS (L57.0) EPIDERMAL NECROSIS SUGGESTIVE OF EXCORIATION (L98.499) Specimen C. SKIN, right distal radial dorsal forearm: SQUAMOUS CELL CARCINOMA, WELL DIFFERENTIATED (C44.622) 0 1:25 PM CDT DERMATOPATHOLOGY LABORATORY at 1325 CDT Clinical History A-C: Squamous cell carcinoma. . 0 1:25 PM CDT DERMATOPATHOLOGY LABORATORY Gross Description Specimen A: Received is one formalin filled container labeled with the patient's name and designated right proximal dorsal forearm. The specimen consists of a shave biopsy measuring [id number]. Jar 0. Specimen B: Received is one formalin filled container labeled with the patient's name and designated right proximal ulnar dorsal forearm. The specimen consists of a shave biopsy measuring [id number]. Jar 0. Specimen C: Received is one formalin filled container labeled with the patient's name and designated right distal radial dorsal forearm. The specimen consists of a shave biopsy measuring [id number]. Jar 0. 0 1:25 PM CDT DERMATOPATHOLOGY LABORATORY Microscopic Description Specimen A. SKIN, right proximal dorsal forearm: There is epidermal hyperplasia beneath which there are vascular proliferation, fibroblasts, and an edematous stroma. Specimen B. SKIN, right proximal ulnar dorsal forearm: There is hyperkeratosis alternating with parakeratosis. There is epidermal hyperplasia with disorderly maturation of keratinocytes with nuclear pleomorphism confined to the lower half of the epidermis. The epidermis is focally necrotic and covered with a scale-crust. There is fibrin at the base. Specimen C. SKIN, right distal radial dorsal forearm: Arising in the epidermis and extending into the dermis there are irregularly shaped aggregates of keratinocytes showing evidence of premature cornification. 0 1:25 PM CDT DERMATOPATHOLOGY LABORATORY Disclaimer An external and internal positive and negative controls are appropriate for the histochemical, immunohistochemical and immunofluorescence stain(s) in this case (if any), except where stated explicitly. The performance characteristics of the stain(s) cited in this report were developed and its performance characteristic determined by the Dermatopathology Laboratory at [facility], directed by Dr. Janeth Snow. These tests need not be, and therefore are not, approved by the [place] Food and Drug Administration. The tests are used for clinical purposes. Billing Codes Specimen Charges Stain Charges 88904 65672 70614 1 1 1 0 1:25 PM CDT DERMATOPATHOLOGY LABORATORY Embedded Images 0 1:25 PM CDT DERMATOPATHOLOGY LABORATORY Pathology/Cytology TISSUE SPECIMEN FROM SKIN / Unknown 06/08/2020 06/09/2020 1:18 PM CDT Miscellaneous samples (specimen) TISSUE SPECIMEN FROM SKIN / Unknown 06/08/2020 06/09/2020 1:18 PM CDT Miscellaneous samples (specimen) TISSUE SPECIMEN FROM SKIN / Unknown 06/08/2020 06/09/2020 1:18 PM CDT Rick Barreto Jr., MD LAB - PATHOLOGY/CYTOLOG Y ORDERABLES Final Result DERMATOPATHOLOGY LABORATORY [facility] - Department of Dermatology [facility] Medicine [address] [place] [address], [address] [phone] documented in this encounter Visit Diagnoses Not on filedocumented in this encounter
--- OUTSIDE RECORDS SUMMARY | 2025-03-15 09:46 | XMS_ITS | Encounter Summary ---
Author Organization [facility] Address [address] [place] [address] Care Team Providers Care Cnc Applications Engineer Name Role Phone Unavailable Primary Care Provider Unavailabl e Encounter Details Date Type Department Care Team (Late st Contact Info) Description 08/15/2020 Lab Requisition [facility] Lab [address] [facility], [place] [id number] Rick Barreto Jr., MD [address] [facility] [address] [place] [address] Social History Tobacco Use Types Packs/Day Years [...]
--- OUTSIDE RECORDS SUMMARY | 2025-03-15 09:46 | XMS_ITS | Encounter Summary ---
Author Organization [facility] Address [address] [place] [address] Care Team Providers Care Elastic Yarn Twister Helper Name Role Phone Unavailable Primary Care Provider Unavailabl e Encounter Details Date Type Department Care Team (Late st Contact Info) Description 05/03/2023 Lab Requisition [facility] - DermPath Lab [address] [facility], [place] [phone] Rick Barreto Jr., MD [address] [place] [address] Social History Tobacco Use Types Packs/Day Years [...] Priority Date/Time Associated Diagnosis Comments DERMATOPATHOLOGY Routine 05/01/2023 12:0 0 AM CDT documented in this encounter Results * DERMATOPATHOLOGY (05/01/2023 12:00 AM CDT) Case Report Dermatopathology Report Case: [id number] Authorizing Provider: Rick Barreto Jr., MD Collected: 05/01/2023 12:00 AM Ordering Location: [facility] DermPath Lab Received: 05/03/2023 10:03 AM Pathologist: Violet Bellamy MD Specimen: Skin, left dorsal thumb metacarpophalangeal joint 1:14 PM CDT DERMATOPATHOLOGY LABORATORY Final Diagnosis Specimen A. SKIN, left dorsal thumb metacarpophalangeal joint: DERMAL SCAR RESIDUAL SQUAMOUS CELL CARCINOMA NOT IDENTIFIED (L90.5) 1:14 PM CDT DERMATOPATHOLOGY LABORATORY at 1314 CDT Clinical History Squamous Cell Carcinoma 3 1:14 PM CDT DERMATOPATHOLOGY LABORATORY Gross Description Specimen A: Received is one formalin filled container labeled with the patient's name and designated left dorsal thumb metacarpophalangeal joint.The specimen consists of an ellipse measuring 42j40j7 mm and is oriented with the suture/notch at the 12 o'clock position labeled on the requisition as orientation notch at 12 o'clock. The 12 to 6 o'clock margin is inked green. The 6 o'clock to 12 o'clock margin is inked black. The 12 o'clock tip is submitted in cassette 1. The 6 o'clock tip is submitted in cassette 2. The remainder of the ellipse is serially sectioned and submitted in cassettes 3 - 4. Jar 0. 1:14 PM CDT DERMATOPATHOLOGY LABORATORY Microscopic Description Specimen A. SKIN, left dorsal thumb metacarpophalangeal joint: There are fibroblasts and collagen bundles oriented parallel to the skin surface. There are elongated blood vessels, some of which are oriented perpendicular to the skin surface. No residual squamous cell carcinoma is identified. 3 1:14 PM CDT DERMATOPATHOLOGY LABORATORY Disclaimer An external and internal positive and negative controls are appropriate for the histochemical, immunohistochemical and immunofluorescence stain(s) in this case (if any), except where stated explicitly. The performance characteristics of the stain(s) cited in this report were developed and its performance characteristic determined by the Dermatopathology Laboratory at [facility], directed by Dr. Janeth Snow. These tests need not be, and therefore are not, approved by the [place] Food and Drug Administration. The tests are used for clinical purposes. Billing Codes Specimen Charges Stain Charges 46872 1 3 1:14 PM CDT DERMATOPATHOLOGY LABORATORY Embedded Images 3 1:14 PM CDT DERMATOPATHOLOGY LABORATORY Pathology/Cytolog y TISSUE SPECIMEN FROM SKIN / Unknown 05/01/2023 05/03/2023 10:03 AM CDT us Rick Barreto Jr., MD LAB - PATHOLOGY/CYTOLOG Y ORDERABLES Final Result DERMATOPATHOLOGY LABORATORY [facility] - Department of Dermatology [facility] [address] [place] [address], [address] [phone] documented in this encounter Visit Diagnoses Not on filedocumented in this encounter
--- OUTSIDE RECORDS SUMMARY | 2025-03-15 09:46 | XMS_ITS | Encounter Summary ---
Author Organization [facility] Address [address] [facility] [place] [address] Care Team Providers Care Assistant Operations Manager Name Role Phone Unavailable Primary Care Provider Unavailabl e Encounter Details Date Type Department Care Team (Late st Contact Info) Description 03/14/2023 Lab Requisition [facility] Lab [address] [facility], [place] [phone] Rick Barreto Jr., MD [address] [facility] [address] [place] [address] Social History Tobacco Use Types Packs/Day Years [...] Priority Date/Time Associated Diagnosis Comments DERMATOPATHOLOGY Routine 03/13/2023 12:0 0 AM CDT documented in this encounter Results * DERMATOPATHOLOGY (03/13/2023 12:00 AM CDT) Case Report Dermatopathology Report Case: [id number] Authorizing Provider: Rick Barreto Jr., MD Collected: 03/13/2023 12:00 AM Ordering Location: [facility] DermPath Lab Received: 03/14/2023 12:03 PM Pathologist: Sonia Snow MD Specimen: Skin, left dorsal thumb metacarpophalangeal joint 3 2:16 PM CDT DERMATOPATHOLOGY LABORATORY Final Diagnosis Specimen A. 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 The specimen consists of a shave biopsy measuring 82m22e7 mm. Jar 0. 3 2:16 PM CDT DERMATOPATHOLOGY LABORATORY Microscopic Description Specimen A. SKIN, left dorsal thumb metacarpophalangeal joint: This exoendophytic lesion shows a central keratotic plug surrounded by a symmetrical proliferation of keratinocytes with abundant eosinophilic cytoplasm. At the sides, there is epithelial lipping. There is a suggestion that the central crater consists of plugged follicular infundibula. 3 2:16 PM CDT DERMATOPATHOLOGY LABORATORY Disclaimer An external and internal positive and negative controls are appropriate for the histochemical, immunohistochemical and immunofluorescence stain(s) in this case (if any), except where stated explicitly. The performance characteristics of the stain(s) cited in this report were developed and its performance characteristic determined by the Dermatopathology Laboratory at [facility], directed by Dr. Janeth Snow. These tests need not be, and therefore are not, approved by the [place] Food and Drug Administration. The tests are used for clinical purposes. Billing Codes Specimen Charges Stain Charges 27129 1 3 2:16 PM CDT DERMATOPATHOLOGY LABORATORY Embedded Images 3 2:16 PM CDT DERMATOPATHOLOGY LABORATORY Pathology/Cytolog y TISSUE SPECIMEN FROM SKIN / Unknown 03/13/2023 03/14/2023 12:03 PM CDT us Rick Barreto Jr., MD LAB - PATHOLOGY/CYTOLOG Y ORDERABLES Final Result DERMATOPATHOLOGY LABORATORY [facility] - Department of Dermatology [address], [address] [place] [address], [facility] [phone] documented in this encounter Visit Diagnoses Not on filedocumented in this encounter
[2025-03-15 11:14] LABS: Hematocrit 40.5 % (42.0-52.0); Hemoglobin 14.1 g/dL (14.0-18.0); Mean Corpuscular HGB Conc 34.8 g/dl (32-36); Mean Corpuscular Hemoglobin 34.9 pg (26-34); Mean Corpuscular Volume 100.2 fl (80-100); Platelet Count Result 269 k/mm3 (150-375); Red Blood Count 4.04 M/mm3 (4.6-6.20); White Blood Count 5.6 K/mm3 (4.5-10.0)
[2025-03-15 11:16] LABS: Add Urine Microscopic? NO; Appearance Urine Clear (Clear); Glucose Urine UA Negative (Negative); Leukocyte Esterase Ur Negative LEU/UL (Negative); Nitrate Urine Negative (Negative); Specific Grav Ur 1.002 (1.001-1.035)
[2025-03-15 11:25] LABS: INR 0.9; Prothrombin Time 11.9 Seconds (11.1-14.7)
[2025-03-15 11:26] LABS: Partial Thromboplastin Time 29.0 Seconds (22.3-36.8)
[2025-03-15 11:31] LABS: Anion Gap 12 mmol/L (4-12); Blood Urea Nitrogen 4 mg/dL (9-20); Calcium 9.8 mg/dL (8.4-10.2); Carbon Dioxide 26 mmol/L (22-30); Chloride 95 mmol/L (98-107); Estimated Glomerular Filt Rate > 60; Glucose 100 mg/dL (65-110); Potassium 4.4 mmol/L (3.4-5.0); Sodium 133 mmol/L (137-145)
== END 2025-03-15 09:16 | disposition home or self-care (01) ==
PROVIDERS: Visit Provider Neurological Surgery
DX: M48.02 Spinal stenosis, cervical region (principal); Z01.818 Encounter for other preprocedural examination
CPT/HCPCS: 36415; 80048; 81003; 85027; 85610; 85730

== ENCOUNTER 2025-04-06 01:10 | Day surgery (SDC) | payer MEDICARE, OTHER, SELFPAY ==
--- NOTE | 2025-03-15 09:49 | PC.NURSE ---
Report to the Outpatient Waiting Room, entrance under the green pavilion located off [facility], at time _8:30 AM on date _04/06/25 . Planned Procedure Time: _10:30AM .? Time changes happen often and if your time is changed the preop area will call you the afternoon before. - You and your visitor will be asked to self-screen and do not enter if you have any COVID symptoms. Please call surgeon if you need to reschedule. - A mask is optional within the hospital at this time. Patients may have clear liquids (water, carbonated beverages, clear teas, apple juice) until 3 hours prior to surgery ( 7:30 AM) with a maximum of 20 ounces. - No food from midnight until time of surgery and no smoking, or chewing tobacco (or any form of nicotine). No chewing gum, candy or mints. Take only the following medications with a SIP of water on the morning of surgery: __NIFEDIPINE DO NOT STOP ANY OF YOUR OTHER PRESCRIPTION MEDICATIONS PRIOR TO SURGERY EXCEPT THE FOLLOWING Hold all vitamins and supplements for 3 days per anesthesiologist. Medications to discontinue per physician NONE Date to take last dose Please no make-up, nail greenlandic, hairspray, perfume, deodorant, or body powder the day of surgery.? No jewelry (including any body piercings) or valuables the day of surgery, leave them at home.? Please take a shower or bath the night before, or the morning of, surgery with an antibacterial soap.? Wear comfortable, loose fitting clothing.? Children are encouraged to wear pajamas. - Jewelry must be removed prior to entering the operating room.? Rings and piercings that are not removed may be cut off. - The hospital will not accept responsibility for valuables.? - Please leave all valuables, including medications, at home the day of surgery. If you are going home after surgery, a licensed pole truck driver must drive you home.? - NO public transportation without another adult if you receive anesthesia. - We recommend that an adult stay with you for 24 hours following discharge. - We also recommend that you do not drive, make important decision, drink alcoholic beverages, or take any drugs that were not prescribed by your health care provider for at least 24 hours after your discharge time. Follow any additional instructions given to you from your surgeon. VERBAL AND WRITTEN instructions given to __PATIENT and asked if any additional questions and then verbalized understanding. Patient advised to call surgeon office or pre surgery nurse liaison [phone] if any additional questions.
[2025-03-15 09:53] VITALS: BMI 23.8
[2025-03-15 10:39] VITALS: BP 167/92; PULSE 95; RESP 18; TEMP 37.4; O2SAT 100
[2025-04-06] VITALS (9 sets, daily range): BP systolic 130–167; BP diastolic 80–98; PULSE 92–104; RESP 12–16; TEMP 36.6–36.7; O2SAT 93–100
--- NOTE | ~2025-04-06 | XR_ITS ---
INTRAOPERATIVE FLUOROSCOPY: CLINICAL HISTORY: 64 years old Male; C6, C7, C7-T1 ANTERIOR CERVICAL DISKECTOMY FUSION PROCEDURE COMMENTS: Limited intraoperative fluoroscopy of the cervical spine was performed. CUMULATIVE DOSE: 1.09 mGy FLUOROSCOPY TIME: 6.9 seconds FINDINGS/IMPRESSION: Please refer to operative note for further details. Reviewed, dictated and finalized at location A.
--- OUTSIDE RECORDS SUMMARY | 2025-04-06 01:12 | XMS_ITS | Clinical Summary ---
Author Organization [facility] Address [address] [place] [address] Care Team Providers Care Community Dietitian Name Role Phone Unavailable Primary Care Provider Unavailabl e Source Comments [facility],non-owned Affiliates and Associated Physician Practices is amultiple site organization consisting of ambulatory clinics and hospital sitesin [place], [place], [place] and [place]. This disclosure is being madepursuant to the Care Everywhere program and may not contain all information available regarding this patient. Last updated 18.[facility] Social History Tobacco Use Types Packs/Day Years [...]
--- OUTSIDE RECORDS SUMMARY | 2025-04-06 01:12 | XMS_ITS | Continuity of Care Document ---
Author Organization [facility] Address [address] [place] [address] Phone Care Team Providers Care Kerrick Kleaner Operator Name Role Phone Candido Brooks MD Unavailable [...] AND BIOPSY TISSUE EXAM BY PATHOLOGIST OFFICE [id number] BODY MASS INDEX DOCD SYST BP >= 140 MM HG6 IT DIAST BP 80-89 MM HG OFFICE [id number] BODY MASS INDEX DOCD SYST BP >= 140 MM HG6 IT DIAST BP >= 90 MM HG OFFICE [id number] BODY MASS INDEX DOCD SYST BP LT 130 MM HG DIAST BP 80-89 MM HG COLONOSCOPY AND BIOPSY TISSUE EXAM BY PATHOLOGIST OFFICE [id number] BODY MASS INDEX DOCD SYST BP GE 130 - 139MM HG DIAST BP 80-89 MM HG OFFICE [id number] Advance Directives Directive Yes / No Effective [...] Diagnoses Date Provider Providers Copied on Encounter [facility], [address], [place], [place], [id number] , [place] tel: [phone] [facility] No Information 5 Cecilia Rey. [address], [place], [id number] , [place]. tel: [phone] [facility], [address], [place], [place], [address] , [place] tel: [phone] [facility] No Information 5 Cecilia Rey. [address] [place] [address], [id number] , [place]. tel: [phone] [employer], [address], [place], [place], [address] , [place] tel: [phone] [facility] No Information 5 Cecilia Rey. [address] [place] [address], [id number] , [place]. tel: [phone] Referring Provider: Vitaliy Garrett[address], [address]. tel:[phone] [facility], [address], [place], [place], [address] , [place] tel: [phone] [facility] No Information 5 Hal Luna. [address] [place] [address], [address], . tel: [phone] Referring Provider: Candido Brooks, [address] [place] [address], [address] . tel:[phone] [employer], [address], [place], [place], [address] , [place] tel: [phone] [facility] No Information 4 Cecilia Rey. [address] [place] [address], [id number] , [place]. tel: [phone] [facility], [address], [place], [address] , [place] tel: [phone] [facility] Diarrhea, unspecified type 4 Hung [place]. [address] [place] [address], [id number] , [place]. tel: [phone] OFFICE KDJNT-EVP-AN PANDED [facility], [address], [address] , [place] tel: [phone] [facility] UC (chief complaint) Ulcerative pancolitis without complication 4 Cecilia Rey. [address] [place] [address], [id number] , [place]. tel: [phone] Referring Provider: Vitaliy Garrett, [address] [place] [address], [address]. tel:[phone] [facility], [address], [place], [address] , [place] tel: [phone] [facility] Diarrhea, unspecified type 3 Cecilia Rey. [address] [place] [address], [id number] , [place]. tel: [phone] OFFICE UFNRS-MZE-PB NAHUM [facility], [address], [place], [address] , [place] tel: [phone] [facility] Colitis (UC) (chief complaint) Ulcerative pancolitis without complicationUmbili janett hernia without obstruction and without gangrene 2 Cecilia Rey. [address] [place] [address], [id number] , [place]. tel: [phone] Referring Provider: Candido Brooks, [address] [place] [address], [address] . tel:[phone] OFFICE YXKRK-LJD-VM LONED [facility], [facility] [address], [place], [place], [address] , [place] tel: [phone] [facility] UC (chief complaint) Ulcerative colitis (chief complaint) Ulcerative pancolitis without complication 2 Hung [place]. [address] [place] [address], [id number] , [place]. tel: [phone] Referring Provider: Vitaliy Garrett, [address] [place] [address], [address]. tel:[phone] [facility], [address], [place], [address] , [place] tel: [phone] [facility] No Information 1 Cecilia Candido. [address] [place] [address], [id number] , [place]. tel: [phone] [facility], [address], [place], [place], [address] , [place] tel: [phone] [facility] No Information 1 Cecilia Rey. [address], [place], [id number] , [place]. tel: [phone] Referring Provider: Vitaliy Garrett, [address] [place] [address], [address]. tel:[phone] [facility], [address], [place], [address] , [place] tel: [phone] [facility] No Information 1 Cecilia Rey. [address], [place], [address] , [place]. tel: [phone] Referring Provider: Vitaliy Garrett, [address] [place] [address], [facility]. tel:[phone] [facility] [address], [place], [place], [address] , [place] tel: [phone] [facility] Ulcerative pancolitis without complication 1 Hung [place]. [address] [place], [place], [address] , [place]. tel: [phone] OFFICE HYNAA-CQX-OS PANDED [facility], [address], [place], [address] , [place] tel: [phone] [facility] Hospital follow up (chief complaint) Ulcerative pancolitis without complicationLiver hemangioma 1 Hung [place]. [address] [place], [place], [address] , [place]. tel: [phone] Referring Provider: Vitaliy Garrett, [address] [place] [address], [address]. tel:[phone] [facility] [address], [place], [address] , [place] tel: [phone] [facility] Abdominal pain, unspecified abdominal location Apr-0 0 Hung [place]. [address] [place], [place], [address] , [place]. tel: [phone] OFFICE LQKVQ-IEK-FF PANDED [facility], [address], [place], [address] , [place] tel: [phone] [facility] Crohn's disease (chief complaint) Ulcerative pancolitis without complicationEpigas tric pain Fe-0 0 Hung [place]. [address] [place], [place], [address] , [place]. tel: [phone] Referring Provider: Vitaliy Garrett[address], [address]. tel:[phone] [facility], [address], [place], [address] , [place] tel: [phone] [facility] Ulcerative pancolitis without complication 0 Hung [place]. [address] [place], [place], [address] , [place]. tel: [phone] [facility], [address], [place], [address] , [place] tel: [phone] [facility] Liver cystAbnormal finding on imaging 9 Cecilia Rey. [address], [place], [address] , [place]. tel: [phone] [facility], [address], [place], [place], [address] , [place] tel: [phone] [facility] Ulcerative pancolitis without complicationAbdomi nal pain, unspecified abdominal location 9 Hung [place]. [address] [place], [place], [address] , [place]. tel: [phone] [facility], [address], [place], [address] , [place] tel: [phone] [facility] Follow up (chief complaint) Ulcerative pancolitis without complicationEpigas tric pain 9 Hung [place]. [address] [place], [place], [address] , [place]. tel: [phone] Referring Provider: Vitaliy Garrett, [address] [place] [address], [address]. tel:[phone] [facility], [address], [place], [place], [address] , [place] tel: [phone] [facility] Diarrhea, unspecified type 9 Hung [place]. [address] [place] [address], [id number] , [place]. tel: [phone] [facility], [address], [place], [place], [address] , [place] tel: [phone] [facility] C. difficile colitisUlcerative pancolitis without complication 8 Eccilia Candido. [address] [place] [address], [id number] , [place]. tel: [phone] Referring Provider: Vitaliy Garrett, [address] [place] [address], [address]. tel:[phone] [facility], [address], [place], [address] , [place] tel: [phone] [facility] Diarrhea, unspecified type 8 Hung [place]. [address] [place] [address], [id number] , [place]. tel: [phone] [facility], [address], [place], [place], [address] , [place] tel: [phone] [facility] Ulcerative pancolitis without complication 7 Cecilia Candido. [address] [place] [address], [id number] , [place]. tel: [phone] Referring Provider: Vitaliy Garrett, [address] [place] [address], [address]. tel:[phone] [facility], [address], [place], [address] , [place] tel: [phone] [facility] Ulcerative pancolitis with complication 7 Cecilia Candido. [address] [place] [address], [id number] , [place]. tel: [phone] Referring Provider: Vitaliy Garrett, [address] [place] [address], [address]. tel:[phone] [facility], [address], [place], [place], [address] , tel: [phone] [facility] Ulcerative pancolitis without complication 6 Cecilia Rey. [address] [place] [address] [place], [address] , [place]. tel: [phone] Referring Provider: Vitaliy Garrett, [address] [place] [address], [address]. tel:[phone] [facility], [address], [place], [place], [address] , tel: [phone] [facility] Diarrhea, unspecified type Sep-0 6 Chente De Jesus. [address], [place], [place], [facility], [place]. tel: [phone] [facility], [address], [place], [place], [address] , tel: [phone] [facility] Ulcerative pancolitis without complication Channing-0 6 Chente De Jesus. [address], [place], [address], [place]. tel: [phone] Referring Provider: Vitaliy Garrett, [address] [place] [address], [address]. tel:[phone] [facility], [address], [place], [place], [address] , tel: [phone] [facility] Diarrhea Nov-2 6 Chente De Jesus. [address], [place], [address], [place]. tel: [phone] Family History Family Member Type Diagnosis Age [...] disease Payers Payer name Insurance type Covered constitution party ID Authoriza tion(s) [id number] [employer] CI [id number] MEDICARE MB [id number] Social History Type Description Quantity Date Captured [...] old male that presents for Crohn's disease. [place] like lately he has been having increased [...]
--- OUTSIDE RECORDS SUMMARY | 2025-04-06 01:12 | XMS_ITS | Encounter Summary ---
Author Organization [facility] Address [address] [place] [address] Care Team Providers Care Trail Maintenance Worker Name Role Phone None, Provider Primary Care Provider Unavaila Vitaliy Torre MD Primary Care Provider [phone] Shereen Allison MD Unavailable Unavailabl e Fiona Gutierrez MD Unavailable Encounter Details Date Type Department Care Team (Late st Contact Info) Description 11/02/2017 Abstract [facility] [address], [place] [id number] , Generic [facility] Social History Tobacco Use Types Packs/Day Years Used Date Smoking Tobacco: Never Assessed Sex and Gender Information Value Date Recorded Sex Assigned at Not on file 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 Gender Identity Not on file Sexual Orientation Not on file documented as of this encounter Plan of Treatment Not on file documented as of this encounter Visit Diagnoses Not on filedocumented in this encounter Care Teams Trail Maintenance Worker Relationship Specialty Start Date End Date None, Provider, PCP - General 12/17/18 04/27/21 Vitaliy Garrett MD [address] [place] [phone] PCP - General INTERNAL MEDICINE 04/28/21 Shereen Allison MD [address] [place] [phone] Consulting Physician CARDIOVASCULAR DISEASE 04/28/2106/19 Fiona Gutierrez MD [address] [place] [phone] Consulting Physician CARDIOVASCULAR DISEASE 07/08/24 documented as of this encounter
--- OUTSIDE RECORDS SUMMARY | 2025-04-06 01:13 | XMS_ITS | Encounter Summary ---
Author Organization [facility] Address [address] [place] [address] Care Team Providers Care Finishing Trimmer Name Role Phone Unavailable Primary Care Provider Unavailabl e Encounter Details Date Type Department Care Team (Late st Contact Info) Description 05/03/2023 Lab Requisition [facility] - DermPath Lab [address] [facility], [place] [id number] Rick Barreto Jr., MD [address] [facility] [address] [place] [address] Social History Tobacco Use Types Packs/Day Years [...] AM CDT) Case Report Dermatopathology Report Case: [id number] Authorizing Provider: Rick Barreto Jr., MD Collected: 05/01/2023 12:00 AM Ordering Location: [facility] DermPath Lab Received: 05/03/2023 10:03 AM Pathologist: [...] joint.The specimen consists of an ellipse measuring 17s84f7 mm and is oriented with the suture/notch [...] characteristic determined by the Dermatopathology Laboratory at [facility], directed by Dr. Janeth Snow. These tests need not be, and therefore are not, approved by the [place] Food and Drug Administration. The tests are used for clinical purposes. Billing Codes Specimen Charges Stain Charges 94769 1 3 1:14 PM CDT DERMATOPATHOLOGY LABORATORY Embedded Images 3 1:14 PM CDT DERMATOPATHOLOGY LABORATORY Pathology/Cytolog y TISSUE SPECIMEN FROM SKIN / Unknown 05/01/2023 05/03/2023 10:03 AM CDT us Rick Barreto Jr., MD LAB - PATHOLOGY/CYTOLOG Y ORDERABLES Final Result DERMATOPATHOLOGY LABORATORY [facility] - Department of Dermatology [facility] [address] [place] [address], [address] [phone] documented in this encounter Visit Diagnoses Not on filedocumented in this encounter
--- OUTSIDE RECORDS SUMMARY | 2025-04-06 01:13 | XMS_ITS | Encounter Summary ---
Author Organization [facility] Address [address] [place] [address] Care Team Providers Care Public Safety Telecommunicator Name Role Phone Unavailable Primary Care Provider Unavailabl e Encounter Details Date Type Department Care Team (Late st Contact Info) Description 10/16/2023 Lab Requisition [facility] - DermPath Lab [address] [facility], [place] [phone] Rick Barreto Jr., MD [address] [facility] [address] [place] [address] Social History Tobacco Use Types Packs/Day Years [...] Comments DERMATOPATHOLOGY Routine 10/15/2023 12:0 0 AM BICYCLE TAXI DRIVER documented in this encounter Results * DERMATOPATHOLOGY (10/15/2023 12:00 AM BICYCLE TAXI DRIVER) Case Report Dermatopathology Report Case: [id number] Authorizing Provider: Rick Barreto Jr., MD Collected: 10/15/2023 12:00 AM Ordering Location: [facility] DermPath Lab Received: 10/17/2023 06:45 AM Pathologist: Keshia Dominguez MD Specimens: A) - Skin, left mid-upper back B) - Skin, right ulnar dorsal hand 12:12 PM BICYCLE TAXI DRIVER DERMATOPATHOLOGY LABORATORY Final Diagnosis Specimen A. SKIN, left mid-upper back: BASAL CELL CARCINOMA, SUPERFICIAL MULTIFOCAL (C44.519) Specimen B. SKIN, right ulnar dorsal hand: SQUAMOUS CELL CARCINOMA, WELL DIFFERENTIATED (C44.622) 12:12 PM BICYCLE TAXI DRIVER DERMATOPATHOLOGY LABORATORY at 1212 BICYCLE TAXI DRIVER Clinical History A: Basal Cell Carcinoma. B: Squamous Cell Carcinoma 12:12 PM [facility] DERMATOPATHOLOGY LABORATORY Gross Description Specimen A: Received [...] measuring 10x9x3 mm. Jar 0. 12:12 PM [facility] DERMATOPATHOLOGY LABORATORY Microscopic Description Specimen A. SKIN, [...] are scattered throughout the proliferation. 12:12 PM [facility] DERMATOPATHOLOGY LABORATORY Disclaimer An external and internal positive and negative controls are appropriate for the histochemical, immunohistochemical and immunofluorescence stain(s) in this case (if any), except where stated explicitly. The performance characteristics of the stain(s) cited in this report were developed and its performance characteristic determined by the Dermatopathology Laboratory at [facility], directed by Dr. Janeth Snow. These tests need not be, and therefore are not, approved by the [place] Food and Drug Administration. The tests are used for clinical purposes. Billing Codes Specimen Charges Stain Charges 08207 27274 1 1 12:12 PM [facility] DERMATOPATHOLOGY LABORATORY Embedded Images 12:12 PM [facility] DERMATOPATHOLOGY LABORATORY Pathology/Cytology TISSUE SPECIMEN FROM SKIN / Unknown 10/15/2023 10/17/2023 6:45 AM BICYCLE TAXI DRIVER Miscellaneous samples (specimen) TISSUE SPECIMEN FROM SKIN / Unknown 10/15/2023 10/17/2023 6:45 AM BICYCLE TAXI DRIVER Rick Barreto Jr., MD LAB - PATHOLOGY/CYTOLOG Y ORDERABLES Final Result DERMATOPATHOLOGY LABORATORY [facility] - Department of Dermatology [facility] Medicine [address] [place] [address], [address] [phone] documented in this encounter Visit Diagnoses Not on filedocumented in this encounter
--- OUTSIDE RECORDS SUMMARY | 2025-04-06 01:13 | XMS_ITS | Encounter Summary ---
Author Organization [facility] Address [address] [place] [address] Care Team Providers Care Paste Up Artist Name Role Phone Unavailable Primary Care Provider Unavailabl e Encounter Details Date Type Department Care Team (Late st Contact Info) Description 04/15/2024 Lab Requisition [facility] - DermPath Lab [address] [facility], [place] [phone] Rick Barreto Jr., MD [address] [facility] [address] [place] [address] Social History Tobacco Use Types Packs/Day Years [...] AM CDT) Case Report Dermatopathology Report Case: [id number] Authorizing Provider: Rick Barreto Jr., MD Collected: 04/14/2024 12:00 AM Ordering Location: [facility] Physician [facility] - Received: 04/15/2024 01:09 PM DermPath Lab [...] elbow.The specimen consists of an ellipse measuring 74u00s6 mm and is oriented with the suture/notch [...] characteristic determined by the Dermatopathology Laboratory at [facility], directed by Dr. Janeth Snow. These tests need not be, and therefore are not, approved by the [place] Food and Drug Administration. The tests are used for clinical purposes. Billing Codes Specimen Charges Stain Charges 52572 1 4:14 PM CDT DERMATOPATHOLOGY LABORATORY Embedded Images 4:14 PM CDT DERMATOPATHOLOGY LABORATORY Pathology/Cytolog y TISSUE SPECIMEN FROM SKIN / Unknown 04/14/2024 04/15/2024 1:09 PM CDT us Rick Barreto Jr., MD LAB - PATHOLOGY/CYTOLOG Y ORDERABLES Final Result DERMATOPATHOLOGY LABORATORY [facility] - Department of Dermatology [facility] Medicine [address] [place] [address], [address] [phone] documented in this encounter Visit Diagnoses Not on filedocumented in this encounter
--- OUTSIDE RECORDS SUMMARY | 2025-04-06 01:13 | XMS_ITS | Encounter Summary ---
Author Organization [facility] Address [address] [place] [address] Care Team Providers Care Malted Milk Masher Name Role Phone Unavailable Primary Care Provider Unavailabl e Encounter Details Date Type Department Care Team (Late st Contact Info) Description 02/12/2024 Lab Requisition [facility] - DermPath Lab [address] [facility], [place] [phone] Rick Barreto Jr., MD [address] [facility] [address] [place] [address] Social History Tobacco Use Types Packs/Day Years [...] AM CDT) Case Report Dermatopathology Report Case: [id number] Authorizing Provider: Rick Barreto Jr., MD Collected: 02/11/2024 12:00 AM Ordering Location: [facility] Physician [facility] - Received: 02/12/2024 12:52 PM DermPath Lab [...] hand.The specimen consists of an ellipse measuring 81p11w3 mm and is oriented with the suture/notch [...] specimen consists of a shave biopsy measuring 75a10j4 mm. Jar 0. 4 3:51 PM CDT [...] by the Dermatopathology Laboratory at [facility], directed by Dr. Janeth Snow. These tests need not be, and therefore are not, approved by the [place] Food and Drug Administration. The tests are used for clinical purposes. Billing Codes Specimen Charges Stain Charges 32412 13936 1 1 4 3:51 PM CDT DERMATOPATHOLOGY LABORATORY Embedded Images 4 3:51 PM CDT DERMATOPATHOLOGY LABORATORY Pathology/Cytology TISSUE SPECIMEN FROM SKIN / Unknown 02/11/2024 02/12/2024 12:52 PM CDT Miscellaneous samples (specimen) TISSUE SPECIMEN FROM SKIN / Unknown 02/11/2024 02/12/2024 12:52 PM CDT Rick Barreto Jr., MD LAB - PATHOLOGY/CYTOLOG Y ORDERABLES Final Result DERMATOPATHOLOGY LABORATORY [facility] - Department of Dermatology [facility] Medicine [address] [place] [address], [address] [phone] documented in this encounter Visit Diagnoses Not on filedocumented in this encounter
--- OUTSIDE RECORDS SUMMARY | 2025-04-06 01:14 | XMS_ITS | Clinical Summary ---
Author Organization [facility] Address [address] [place] [address] Care Team Providers Care Automatic Equipment Technician Name Role Phone Vitaliy Garrett MD Primary Care Provider [phone] Fiona Gillis MD Unavailable Allergies Active Allergy [...] 05/22/2021 Chronic ulcerative colitis w ithout complication ([facility]) 06/10/2017 Essential (primary) hypertension 06/10/2017 Sarcoid 06/10/2017 Encounters Date Type Department Care Team Description 01/12/2025 Telephone [facility] [address] [place] [address] Fiona Gillis MD Called To Cancel Office Appt. (Has to work ) 01/08/2025 Orders Only [facility] [address] [place] [address] Fiona Gillis MD 01/06/2025 8:43 AM CDT - 01/06/2025 11:59 PM CDT Hospital Encounter [facility] Non Invasive Cardiology - [facility] [address] [place] [address] Fiona Gillis MD Discharge Disposition: Home or [...] on file Legal Sex Male 11:12 PM ASPHALT BLENDER Gender Identity Not on file Sexual Orientation Not on file Last Filed Vital Signs Vital Sign Reading Time Taken Comments Blood Pressure 137/87 07/09/2024 3:57 PM ASPHALT BLENDER Pulse 113 07/09/2024 3:57 PM ASPHALT BLENDER Temperature - - Respiratory Rate 16 07/09/2024 3:57 PM ASPHALT BLENDER Oxygen Saturation 96% 07/09/2024 3:57 PM ASPHALT BLENDER Inhaled Oxygen Concentration - - Weight 79.4 kg (175 lb) 07/09/2024 3:57 PM ASPHALT BLENDER Height 182.9 cm (6') 07/09/2024 3:57 PM ASPHALT BLENDER Body Mass Index 23.73 07/09/2024 3:57 PM ASPHALT BLENDER Plan of Treatment Health Maintenance Due Date [...] CDT Echocardiography Report Pat.Name: SALVADOR CAMPBELL Pat.ID: [id number] .Date: 01/06/2025 Refer.: [id number], FIONA GILLIS Exam Time: 9:00:00 AM Study Type:ECHO WITH CARDIAC DOPPLER COMP Height: 180 cm Weight: 79.4 kg BSA: 1.99 m2 Age: 6 1960,64Y Sex: M BP: 137/85 HR: 102 bpm Sonogrphr: Edin Arias RDCS, RVT, RDMS Pat. Stat.:Outpatient CPT - 4: 62735 Reason for Study:Hypertensive heart disease Procedures: 2D, [...] 01/09/2025 Echocardiography Report Pat.Name: SALVADOR CAMPBELL Pat.ID: [id number] St.Date: 01/06/2025 Refer.: [id number], FIONA GILLIS Exam Time: 9:00:00 AM Study Type:ECHO WITH CARDIAC DOPPLER COMP Height: 180 cm Weight: 79.4 kg BSA: 1.99 m2 Age: 6 1960,64Y Sex: M BP: 137/85 HR: 102 bpm Sonogrphr: Edin Arias RDCS, RVT, RDMS Pat. Stat.:Outpatient CPT - 4: 41076 Reason for Study:Hypertensive heart disease Procedures: 2D, [...] Recently Relevant to Health Maintenance [place] [address] MEDICARE [facility] Care Teams Automatic Equipment Technician Relationship Specialty Start Date End Date Vitaliy Garrett MD [address] [place] [phone] PCP - General INTERNAL MEDICINE 04/28/21 Fiona Gillis MD [address] [place] [address] Consulting Physician CARDIOVASCULAR DISEASE 07/08/24
--- OUTSIDE RECORDS SUMMARY | 2025-04-06 01:14 | XMS_ITS | Clinical Summary ---
Author Organization [facility] Address [address] [facility] [address], [place] [address] Phone Care Team Providers Care Drinking Water Technician Name Role Phone Vitaliy Garrett MD Primary Care Provider [phone] Roby Gaxiola MD Unavailable Allergies No known [...] age to complete this topic Insurance MEDICARE [facility] Care Teams Drinking Water Technician Relationship Specialty Start Date End Date Vitaliy Garrett MD [address] [place] [address] PCP - General Internal Medicine 06/10/17 Roby Gaxiola MD [address] [place] [phone] Consulting Physician Pulmonary Disease 05/25/23
--- OUTSIDE RECORDS SUMMARY | 2025-04-06 01:14 | XMS_ITS | Encounter Summary ---
Author Organization [facility] Address [address] [place] [address] Care Team Providers Care Plisse Machine Operator Helper Name Role Phone Unavailable Primary Care Provider Unavailabl e Encounter Details Date Type Department Care Team (Late st Contact Info) Description 06/09/2020 Lab Requisition [facility] DermPath Lab [address] [facility], [place] [phone] Rick Barreto Jr., MD [address] [facility] [address] [place] [address] Social History Tobacco Use Types Packs/Day Years [...] AM CDT) Case Report Dermatopathology Report Case: [id number] Authorizing Provider: Rick Barreto Jr., MD Collected: 06/08/2020 12:00 AM Ordering Location: [facility] DermPath Lab Received: 06/09/2020 01:18 PM Pathologist: [...] specimen consists of a shave biopsy measuring 4k2e2zn. Jar 0. Specimen B: Received is one formalin filled container labeled with the patient's name and designated right proximal ulnar dorsal forearm. The specimen consists of a shave biopsy measuring 2o6l2ks. Jar 0. Specimen C: Received is one formalin filled container labeled with the patient's name and designated right distal radial dorsal forearm. The specimen consists of a shave biopsy measuring 7t1a9lm. Jar 0. 0 1:25 PM CDT DERMATOPATHOLOGY [...] characteristic determined by the Dermatopathology Laboratory at [facility], directed by Dr. Janeth Snow. These tests need not be, and therefore are not, approved by the [place] Food and Drug Administration. The tests are used for clinical purposes. Billing Codes Specimen Charges Stain Charges 82965 05787 38054 1 1 1 0 1:25 PM CDT [...] DERMATOPATHOLOGY LABORATORY [facility] - Department of Dermatology [facility] Medicine [address] [place] [address], [address] [phone] documented in this encounter Visit Diagnoses Not on filedocumented in this encounter
--- OUTSIDE RECORDS SUMMARY | 2025-04-06 01:14 | XMS_ITS | Encounter Summary ---
Author Organization [facility] Address [address] [place] [address] Care Team Providers Care Instruments Sales Representative Name Role Phone Unavailable Primary Care Provider Unavailabl e Encounter Details Date Type Department Care Team (Late st Contact Info) Description 08/15/2020 Lab Requisition [facility] Derm[facility] Lab [address] [facility] [place] [phone] Rick Barreto Jr., MD [address] [facility] [address] [place] [address] Social History Tobacco Use Types Packs/Day Years [...]
--- OUTSIDE RECORDS SUMMARY | 2025-04-06 01:14 | XMS_ITS | Encounter Summary ---
Author Organization [facility] Address [address] [place] [address] Care Team Providers Care C Winforms Developer Name Role Phone Unavailable Primary Care Provider Unavailabl e Encounter Details Date Type Department Care Team (Late st Contact Info) Description 03/14/2023 Lab Requisition [facility] Lab [address] [facility] [place] [facility], [place] [phone] Rick Barreto Jr., MD [address] [facility] [address] [place] [address] Social History Tobacco Use Types Packs/Day Years [...] AM CDT) Case Report Dermatopathology Report Case: [id number] Authorizing Provider: Rick Barreto Jr., MD Collected: 03/13/2023 12:00 AM Ordering Location: [facility] DermPath Lab Received: 03/14/2023 12:03 PM Pathologist: [...] specimen consists of a shave biopsy measuring 86v18w1 mm. Jar 0. 3 2:16 PM CDT [...] characteristic determined by the Dermatopathology Laboratory at [facility], directed by Dr. Janeth Snow. These tests need not be, and therefore are not, approved by the [place] Food and Drug Administration. The tests are used for clinical purposes. Billing Codes Specimen Charges Stain Charges 92732 1 3 2:16 PM CDT DERMATOPATHOLOGY LABORATORY Embedded Images 3 2:16 PM CDT DERMATOPATHOLOGY LABORATORY Pathology/Cytolog y TISSUE SPECIMEN FROM SKIN / Unknown 03/13/2023 03/14/2023 12:03 PM CDT us Rick Barreto Jr., MD LAB - PATHOLOGY/CYTOLOG Y ORDERABLES Final Result DERMATOPATHOLOGY LABORATORY [facility] - Department of Dermatology [address] [place] [address], [facility] [phone] documented in this encounter Visit Diagnoses Not on filedocumented in this encounter
--- OUTSIDE RECORDS SUMMARY | 2025-04-06 01:14 | XMS_ITS | Encounter Summary ---
Author Organization [facility] Address [address] [place] [address] Care Team Providers Care Laundry Worker Name Role Phone Unavailable Primary Care Provider Unavailabl e Encounter Details Date Type Department Care Team (Late st Contact Info) Description 08/15/2020 Lab Requisition [facility] DermPath Lab [address] [facility], [place] [phone] Rick Barreto Jr., MD [address] [facility] [address] [place] [address] Social History Tobacco Use Types Packs/Day Years [...] Comments DERMATOPATHOLOGY Routine 08/10/2020 12:0 0 AM MICROFILM PROCESSOR documented in this encounter Results * DERMATOPATHOLOGY (08/10/2020 12:00 AM MICROFILM PROCESSOR) Case Report Dermatopathology Report Case: [id number] Authorizing Provider: Rick Barreto Jr., MD Collected: 08/10/2020 12:00 AM Ordering Location: [facility] DermPath Lab Received: 08/15/2020 12:01 PM Pathologist: Sonia Snow MD Specimen: Skin, right ulnar dorsal hand 0 4:28 PM MICROFILM PROCESSOR DERMATOPATHOLOGY LABORATORY Final Diagnosis Specimen A. 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 Check margins. Previous Bx: [id number]. . 0 4:28 PM [facility] DERMATOPATHOLOGY LABORATORY Gross Description Specimen A: Received is one formalin filled container labeled with the patient's name and designated right ulnar dorsal hand.The specimen consists of an ellipse measuring 87l79u9re and is oriented with the notch at the 12 o'clock position labeled on the requisition as notch at 12 o'clock. The epidermal surface consists of a centrally located 91t59yy lesion. The 12 to 6 o'clock margin is inked green. The 6 o'clock to 12 o'clock margin is inked black. The 12 o'clock tip is submitted in cassette 1. The 6 o'clock tip is submitted in cassette 2. The remainder of the ellipse is serially sectioned and submitted in cassettes 3-4. Jar 0. 0 4:28 PM [facility] DERMATOPATHOLOGY LABORATORY Microscopic Description Specimen A. [...] to the skin surface. 0 4:28 PM [facility] DERMATOPATHOLOGY LABORATORY Disclaimer An external and internal positive and negative controls are appropriate for the histochemical, immunohistochemical and immunofluorescence stain(s) in this case (if any), except where stated explicitly. The performance characteristics of the stain(s) cited in this report were developed and its performance characteristic determined by the Dermatopathology Laboratory at [facility], directed by Dr. Janeth Snow. These tests need not be, and therefore are not, approved by the [place] Food and Drug Administration. The tests are used for clinical purposes. Billing Codes Specimen Charges Stain Charges 69708 1 0 4:28 PM [facility] DERMATOPATHOLOGY LABORATORY Embedded Images 0 4:28 PM [facility] DERMATOPATHOLOGY LABORATORY Pathology/Cytolog y TISSUE SPECIMEN FROM SKIN / Unknown 08/10/2020 08/15/2020 12:01 PM MICROFILM PROCESSOR us Rick Barreto Jr., MD LAB - PATHOLOGY/CYTOLOG Y ORDERABLES Final Result DERMATOPATHOLOGY LABORATORY [facility] - Department of Dermatology [facility] Medicine [address] [place] [address], [address] [phone] documented in this encounter Visit Diagnoses Not on filedocumented in this encounter
--- OUTSIDE RECORDS SUMMARY | 2025-04-06 01:14 | XMS_ITS | Encounter Summary ---
Author Organization [facility] Address [address] [place] [address] Care Team Providers Care Agronomy Advisor Name Role Phone Ismael Smith MD Primary Care Provider [phone] Encounter Details Date Type Department Care Team (Latest Contact Info) Description 09/16/2002 Outpatient Historical [facility] Ismael Smith MD [address] [place] [address] SURGERY FOLLOWUP, OTHER (Primary Dx) Social History Tobacco Use Types Packs/Day Years Used Date Smoking Tobacco: Never Assessed Sex and Gender Information Value Date Recorded Sex Assigned at Not on file Legal Sex Male 4:52 AM [employer] Gender Identity Not on file Sexual Orientation Not on file documented as of this encounter Plan of Treatment Not on file documented as of this encounter Visit Diagnoses Diagnosis Follow-up examination, following other surgery- Primary documented in this encounter Care Teams Agronomy Advisor Relationship Specialty Start Date End Date Ismael Smith MD [address] [place] [address] PCP - General 09/16/02 documented as of this encounter
--- OUTSIDE RECORDS SUMMARY | 2025-04-06 01:14 | XMS_ITS | Encounter Summary ---
Author Organization [facility] Address [address] [place] [place] [address] Care Team Providers Care Slot Attendant Name Role Phone Unavailable Primary Care Provider Unavailabl e Encounter Details Date Type Department Care Team (Late st Contact Info) Description 07/07/2020 Lab Requisition [facility] DermPath Lab [address] [place] [id number] Rick Barreto Jr., MD [address] [facility] [address] [place] [address] Social History Tobacco Use Types Packs/Day Years [...] Comments DERMATOPATHOLOGY Routine 07/06/2020 12:0 0 AM REPAIRER SHOE STICKS documented in this encounter Results * DERMATOPATHOLOGY (07/06/2020 12:00 AM REPAIRER SHOE STICKS) Case Report Dermatopathology Report Case: [id number] Authorizing Provider: Rick Barreto Jr., MD Collected: 07/06/2020 12:00 AM Ordering Location: [facility] Derm[facility] Lab Received: 07/07/2020 12:59 PM Pathologist: Mansi Dominguez MD Specimens: A) - Skin, right distal radial dorsal forearm B) - Skin, right radial dorsal hand C) - Skin, right ulnar dorsal hand 0 6:46 PM [facility] [employer] [facility] DERMATOPATHOLOGY LABORATORY Final Diagnosis Specimen A. SKIN, [...] microscopic description and comment) 0 6:46 PM [facility] DERMATOPATHOLOGY LABORATORY at 1845 REPAIRER SHOE STICKS Clinical History A: Squamous cell carcinoma. Check margins. Previous Bx: [id number]. B-C: Squamous cell carcinoma vs actinic keratosis. . 0 6:46 PM [facility] DERMATOPATHOLOGY LABORATORY Gross Description Specimen A: Received is one formalin filled container labeled with the patient's name and designated right distal radial dorsal forearm.The specimen consists of an ellipse measuring [id number] and is oriented with the notch at [...] specimen consists of a shave biopsy measuring [id number]. Jar 0. Specimen C: Received is one formalin filled container labeled with the patient's name and designated right ulnar dorsal hand. The specimen consists of a shave biopsy measuring [id number]. Jar 0. 0 6:46 PM [facility] DERMATOPATHOLOGY LABORATORY Microscopic Description Specimen A. [...] cannot be ruled out. 0 6:46 PM [facility] DERMATOPATHOLOGY LABORATORY Disclaimer An external and internal positive and negative controls are appropriate for the histochemical, immunohistochemical and immunofluorescence stain(s) in this case (if any), except where stated explicitly. The performance characteristics of the stain(s) cited in this report were developed and its performance characteristic determined by the Dermatopathology Laboratory at [facility], directed by Dr. Janeth Snow. These tests need not be, and therefore are not, approved by the [place] Food and Drug Administration. The tests are used for clinical purposes. Billing Codes Specimen Charges Stain Charges 98064 47444 30705 1 1 1 0 6:46 PM [facility] [facility] DERMATOPATHOLOGY LABORATORY Embedded Images 0 6:46 PM [facility] [facility] DERMATOPATHOLOGY LABORATORY Pathology/Cytology TISSUE SPECIMEN FROM SKIN / Unknown 07/06/2020 07/07/2020 12:59 PM REPAIRER SHOE STICKS Miscellaneous samples (specimen) TISSUE SPECIMEN FROM SKIN / Unknown 07/06/2020 07/07/2020 12:59 PM REPAIR[employer] SHOE [employer]ICKS Miscellaneous samples (specimen) TISSUE SPECIMEN FROM SKIN / Unknown 07/06/2020 07/07/2020 12:59 PM REPAIRER SHOE STICKS us Rick Barreto Jr., MD LAB - PATHOLOGY/CYTOLOG Y ORDERABLES Final Result DERMATOPATHOLOGY LABORATORY [facility] - Department of Dermatology [address], [address] [place] [address], [facility] [phone] documented in this encounter Visit Diagnoses Not on filedocumented in this encounter
--- OUTSIDE RECORDS SUMMARY | 2025-04-06 01:14 | XMS_ITS | Clinical Summary ---
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
[2025-04-06] MEDS: LACTATED RINGERS 1,000 ML 30 ML IV CONT ×2 (08:30→13:16)
--- NOTE | 2025-04-06 09:55 | WPDANESEPPF ---
Anes - Initial Pre Proc Eval Procedure: Operation Date: 04/06/25 10:30 Proposed Procedures p C6, C7, C7-T1, Anterior Cervical Discectomy Fusion - Jose Rogers MD Date/Time: 04/06/25 09:55 Surgeon: Jose Rogers MD Pre Op Diagnosis: cervical stenosis Patient Data Age: 64 Gender: M Height: 1.83 m Weight: 77.45 kg Last Vital Signs Temp 36.7 C 04/06/25 08:00 Pulse 98 04/06/25 08:00 Resp 16 04/06/25 08:00 BP 130/83 04/06/25 08:00 Pulse Ox 99 04/06/25 08:00 O2 Del Method Room Air 04/06/25 08:00 Allergies Allergy/AdvReac Type Severity Reaction Status Date / Time aspirin AdvReac Ulcers Verified 04/06/25 08:38 NSAIDS (Non-Steroidal AdvReac Ulcers Verified 04/06/25 08:38 Anti-Inflamma Home Medications ?Medication ?Instructions ?Recorded ?Confirmed ?Type azathioprine 50 mg tablet (Imuran) 50 mg PO DAILY 06/03/23 04/06/25 History hydrocodone 10 mg-acetaminophen 1 tablet PO QHS PRN pain 06/03/23 03/15/25 History 325 mg tablet infliximab 100 mg intravenous IV 06/03/23 History solution (Remicade) losartan 100 mg tablet 100 mg PO DAILY 06/03/23 04/06/25 History nifedipine 60 mg tablet,extended 60 mg PO DAILY 06/03/23 04/06/25 History release ranolazine 1,000 mg 1,000 mg PO Q12H 06/03/23 04/06/25 History tablet,extended release,12 hr tramadol 50 mg disintegrating 50 mg PO PRN PRN pain 06/03/23 03/15/25 History tablet Laboratory Tests 04/06/25 08:31 Blood Type Pending Antibody Screen Pending Patient hx anesthesia problems: none Family hx anesthesia problems: none Results Review: All pre-operative results and documents have been reviewed as part of the pre-operative evaluation. ON LICENSE OF [facility] Past Medical History Medical History (Updated 04/06/25 @ 09:56 by Mayo Carbajal DO) Ulcerative colitis Chronic, continuous use of opioids Hypertension Social History Social History (Reviewed 12/08/24 @ 13:55 by HCUCK Escobedo Smoking status: Former smoker Alcohol intake: current Alcohol use details: Socially Substance use: never Substance use type: does not use Lack of Transportation: No Lack of Food: Never True Current Housing: I Have Housing Concerned About Future Housing: No Difficulty Paying Gas/Electric Bills: No Difficulty Paying for Meds: No Currently Unemployed: No Education: Associate Degree Difficulty w/ Childcare or Family Care: No Anes - Eval Final PreProcedure Day of Procedure 04/06/25 09:55 Patient weight: normal Heart: regular rate and rhythm Lungs: clear to auscultation Airway: Mallampati scale class II Neurological: alert and oriented Last oral intake: >/= 8 hours ASA classification: III Emergent: no Anesthetic plan: proceed Anesthesia type and monitoring: general ETT and standard monitoring Results Review: All pre-operative results and documents have been reviewed as part of the pre-operative evaluation. Informed Consent: The patient's anesthetic plan and its attendant risks and benefits were discussed with the patient/family/POA. Questions were solicited and answers provided to the satisfaction of the patient/family/POA.
--- NOTE | 2025-04-06 10:53 | PM.IMHP ---
H&P: HPI History of Present Illness Date/Time: 04/06/25 10:53 Chief Complaint: Neck and arm pain Narrative: Salvador is for an ACDF at C7-6-7 and C7-T1. He is a 63-year-old gentleman last seen in our office for problems related to his back. Now presents with neck issues. He has been seeing Dr. Gonzales and undergone injections in the lumbar spine as well as in the cervical spine. A C6-7 epidural steroid injection that helped him fairly substantially, unfortunately not permanently. He has pain in his neck that radiates into the upper extremity down to the middle digits. The neck pain is the most substantial part of it and it radiates into his head causing headaches and into his shoulders. He does not report specific muscle group weakness or dermatomal numbness. His pain does seem activity-related at times. At times it is quite severe. It is limiting and distracting for him on a daily basis. He is here to discuss potential surgical management of that problem. he has not changed appreciably since we last saw him. Review of Systems Review of Systems: All systems reviewed & are unremarkable except as noted in HPI and below Denies chills, Denies fever, Denies weight gain and Denies weight loss Eyes Denies change in vision and Denies diplopia ENT Denies disequilibrium Card Denies chest pain and Denies dyspnea Resp Denies cough and Denies dyspnea GI Denies abdominal pain, Denies change in bowel habits, Denies fecal incontinence and Denies vomiting Denies hematuria, Denies oliguria, Denies difficulty urinating, Denies dysuria, Denies urinary frequency, Denies urinary hesitancy, Denies urinary incontinence and Denies urinary urgency Musc Reports as per HPI Skin/ Breast Reports system reviewed and no additional complaints, except as documented Neuro Reports as per HPI Psych Reports no additional complaints, Denies depression and Denies hopelessness Endo Reports no additional complaints and Denies polyuria Adonay/ Lymph Reports no additional complaints Aller/ Immun Reports no additional complaints PMF Past Medical History Medical History (Updated 04/06/25 @ 09:56 by Mayo Carbajal DO) Ulcerative colitis Chronic, continuous use of opioids Hypertension Social History Social History Smoking status: Former smoker Alcohol intake: current Alcohol use details: Socially Substance use: never Substance use type: does not use Lack of Transportation: No Lack of Food: Never True Current Housing: I Have Housing Concerned About Future Housing: No Difficulty Paying Gas/Electric Bills: No Difficulty Paying for Meds: No Currently Unemployed: No Education: Associate Degree Difficulty w/ Childcare or Family Care: No Meds Home Medications and Allergies Home Medications ?Medication ?Instructions ?Recorded ?Confirmed ?Type azathioprine 50 mg tablet (Imuran) 50 mg PO DAILY 06/03/23 04/06/25 History hydrocodone 10 mg-acetaminophen 1 tablet PO QHS PRN pain 06/03/23 03/15/25 History 325 mg tablet infliximab 100 mg intravenous IV 06/03/23 History solution (Remicade) losartan 100 mg tablet 100 mg PO DAILY 06/03/23 04/06/25 History nifedipine 60 mg tablet,extended 60 mg PO DAILY 06/03/23 04/06/25 History release ranolazine 1,000 mg 1,000 mg PO Q12H 06/03/23 04/06/25 History tablet,extended release,12 hr tramadol 50 mg disintegrating 50 mg PO PRN PRN pain 06/03/23 03/15/25 History tablet Allergies Allergy/AdvReac Type Severity Reaction Status Date / Time aspirin AdvReac Ulcers Verified 04/06/25 08:38 NSAIDS (Non-Steroidal AdvReac Ulcers Verified 04/06/25 08:38 Anti-Inflamma Vital Signs Vital Signs - 24 hr 04/06/25 08:00 Temperature 98.1 F Pulse Rate 98 Respiratory Rate 16 Blood Pressure 130/83 Pulse Oximetry 99 Oxygen Delivery Room Air Exam Narrative: General: cooperative, no acute distress, well developed, alert and awake Orientation/Consciousness: oriented to person, oriented to place and oriented to time Constitutional Limitations: no limitations Other: The patient is a normally developed, normal appearing male sitting on the examination table in no acute distress. He is awake, alert, and oriented x3 with good fund of knowledge, recall of events, and fluent speech. HENMT Head: normocephalic and atraumatic Ears: external ears normal Face/Nose/Sinus: Normal external nose present Eyes Eyelids: eyelids normal Pupils: Yes Pupils normal by confrontation EOM: EOMs intact bilaterally Neck General: Yes no meningeal signs, Yes supple and Yes no JVD Resp Effort/Inspection: normal respiratory effort and able to speak in complete sentences Cardio Rate: Yes regular rate GI Inspection: No abdominal distension Musc Other: Examination of the neck reveals paraspinous tenderness. Range of motion of the neck is limited with pain in forward flexion, extension, and lateral rotation to both sides. Skin General: normal color Neuro General: Yes oriented to person, Yes oriented to place, Yes oriented to time, Yes normal cognition and Yes no meningeal signs Cranial Nerves: Yes CN's II-XII intact bilaterally Other: Motor: Strength is normal, 5/5, throughout all muscle groups of the bilateral upper extremities to direct confrontation. Sensory: Sensation is intact to light touch throughout the upper extremities bilaterally. Reflexes: are difficult to elicit at the biceps, brachioradialis bilaterally. There is no clonus. There is no Willis's. Gait: Gait, station, and transfers are independent and steady for short periods of time and over short distances. Psych Appearance: grossly normal Mental status: Yes mental status grossly normal Mood: congruent mood Affect: Yes normal affect Speech/Movement: Normal speech and movement present Attitude: Yes cooperative Thought Content: Normal thought content present Review of studies: CT scan of the cervical spine was personally reviewed by me. This demonstrates significant spondylosis worst at C6-7 and C7-T1 on the right. There is foraminal stenosis at C7-T1 on the right as well as at C6-7 bilaterally right greater the left. Assessment and Plan Assessment and plan (1) Cervical disc herniation: Code(s): M50.20 - Other cervical disc displacement, unspecified cervical region Status: Acute (2) Cervical spondylosis: Code(s): M47.812 - Spondylosis without myelopathy or radiculopathy, cervical region Status: Acute (3) Foraminal stenosis of cervical region: Code(s): M48.02 - Spinal stenosis, cervical region Status: Acute Plan Salvador persists in having neck and upper extremity as well as head pain related to the pathology at C6-7 and C7-T1 despite considerable nonsurgical management and. I have therefore recommended him a C6-7 and C7-T1 anterior cervical diskectomy and fusion described to him that operation, its risks, potential benefits, the operative and postoperative course in detail and answered all the questions personally. We discussed risks including but not limited to permanent neurologic or functional deficit related injury of the trachea, esophagus, carotid artery, jugular vein, recurrent laryngeal nerve causing hoarseness or aspiration, spinal cord or nerve roots causing permanent neurologic deficit, need for reoperation secondary to infection, bleeding, CSF leak, adjacent level disease, recurrent residual pathology, instability, malposition migration of the hardware or nonunion, failure of the procedure to relieve his pain or symptoms, persistent pain, medical complications related anesthesia or surgery, etc.. He indicates understanding and elects to proceed with that operation.
--- NOTE | 2025-04-06 10:59 | WPDHPUPDATE1 ---
History and Physical Update Update Date/Time: 04/06/25 10:59 History and Physical has been reviewed, including an updated exam of the patient. There are NO changes in the patient's condition. Risks, benefits, and alternatives have been discussed and questions answered. Patient agrees to proceed with procedure.
[2025-04-06] MEDS: ceFAZolin 2 GM in SODIUM CHLORIDE 0.9% IV 50 ML 100 ML IVPB (11:20)
[2025-04-06] MEDS: LIDO 1%/EPINEPHRINE 1:100,000 20 ML VIAL 12 ML INFILTRATE (12:25)
[2025-04-06] MEDS: oxyCODONE HCL (*CRX) 5 MG TAB IR PO (15:04)
--- NOTE | 2025-04-14 15:47 | P.OP_ITS ---
Procedure Note - Detailed Date of Procedure 04/06/25 Pre-op Diagnosis cervical stenosis Post-op Diagnosis Same Procedure Performed C6-7 and C7-T1 complete diskectomy and interbody arthrodesis utilizing peek interbody device and local autograft and magnetos, C6-7 and C7-T1 anterior cervical plating with locking plate and screws Surgeon Jose Rogers MD Anesthesia General Description of Procedure The patient was brought to the operating room in the supine position, was sedated, intubated placed under general anesthesia in routine fashion. There operation on the right side of the neck was examined, marked for incision, prepped and draped in routine sterile fashion. Incision was marked from the midline over the medial aspect of the sternocleidomastoid muscle and curvilinear transverse fashion 2 fingerbreadths above the sternal notch. This area was injected with 0.5% lidocaine with [id number] epinephrine. Intravenous antibiotics given prior to incision. Incision was made with a 10 blade scalpel down to the platysma muscle. The skin was undermined the platysma muscle was divided longitudinally with its fibers using Metzenbaum scissors. Plane was then dissected medial to the sternocleidomastoid muscle down to the anterior aspect of spine using the finger and Metzenbaum scissors. A verifying x-rays obtained to verify the level of operation. At C6-7 and C7-T1 the longus colli muscle was dissected free of the anterior aspect of the spine in a subperiosteal plane using Bovie cautery. A Shadow Line retractor system was placed. Jackson pins were placed in the C6 and T1 and distraction placed over both disc spaces simultaneously. Diskectomy and arthrodesis procedures were performed identically at each level. Incision was made into the disc space cutting along the margin of the bone above and below with a 15 blade scalpel. A curved curette and pituitary rongeur used to remove as much cartilaginous endplate and disc material as possible down to the annulus and ligament posteriorly. A [employer] Ady drill with the matchstick bit was used to bur down the endplates to bleeding cortical flat surfaces was to begin a bony foraminotomy bilaterally. Under microscopy the annulus and ligament were interrupted with curved curette and a 2. Kerrison punch was used to remove annulus, ligament, posterior osteophyte and to complete a bony foraminotomy bilaterally including removing any disc herniation. Decompression was confirmed by placing a nerve hook into the foramen to confirm lack of compression. The disc spaces were then sized appropriately sized peek interbody devices were chosen and filled with local autograft bone. The disc space was likewise filled with local autograft bone. The interbody devices were then placed with 2-3 mm countersink within the disc space. An anterior cervical plate was chosen placed in position and secured using 614 x 4 mm anterior screws advanced into the locking mechanism of the plate to hand tightness. The locking mechanism was engaged at each screw. A verifying x-rays obtained to verify good position of the instrumentation which was confirmed. The wound was then copiously irrigated with bacitracin irrigation all bleeding stopped with bipolar Bovie cautery and Gelfoam thrombin powder. The wound was then closed in layered fashion with 3-0 Vicryl interrupted sutures in the platysma muscle and the dermis. The skin was closed with a running 4-0 Monocryl subcuticular stitch and dressed with Dermabond. Patient was allowed to wake up in the operating room was taken to the recovery room in stable condition. There were no immediate complications of this operation. All counts reported correct at the end the case. Blood loss was 25 cc. The patient was neurologically at his baseline postoperatively. CPT codes: 02146, 05833, 25082, 60315 x 2, 10284 x 2 Estimated Blood Loss 25 Complications None Condition Stable Disposition PACU [facility] Billing Surgery - Charge Forward: Surgery Billing
== END 2025-04-06 15:30 | disposition home or self-care (01) ==
PROVIDERS: Visit Provider Neurological Surgery
PROC: (CPT 63030; principal; 2025-04-06 10:30)
DX: M48.02 Spinal stenosis, cervical region (principal); M47.812 Spondylosis without myelopathy or radiculopathy, cervical region; I10 Essential (primary) hypertension; Z79.891 Long term (current) use of opiate analgesic; Z87.891 Personal history of nicotine dependence; Z87.19 Personal history of other diseases of the digestive system
CPT/HCPCS: 22551; 22552; 22853 ×2; 20936; 36415; 86850; 86900; 86901; 86902; 99199; J0690; A9270; C1713; J1100; J1171; J2003; J2004; J2250; J2405; J2704; J3010; J7120

== ENCOUNTER 2025-05-25 09:16 | Outpatient (CLI) | payer OTHER, MEDICARE, SELFPAY ==
--- OUTSIDE RECORDS SUMMARY | 2024-08-31 09:41 | XMS_ITS | Continuity of Care Document ---
Author Organization [facility] Address [address] [place] [address] Phone Care Team Providers Care Audio Visual Secretary Name Role Phone Candido Brooks MD Unavailable Unavailable Allergies, Adverse Reactions, Alerts Substance Reaction Status Criticality No Known Allergies Active No Inform ation Medications Medication Instructions Dosage Effective Dates (start - stop) Status Comments Xanax 0.25 mg tablet TAKE ONE TABLET BY MOUTH EVERY 8 HOURS NEEDED FOR ANXIETY - Active azathioprine 50 mg tablet take 4 tablet by oral route every day in divided doses - Active Dr. Candido Brooks prednisone 10 mg tablet take 4 tablets by mouth for 5 days, then decrease to 3 tablets for 5 days, then 2 tablets for 5 days then 1 tablet daily for 5 days - Active Dr. Candido Brooks Suprep Bowel Prep Kit 17.5 gram-3.13 gram-1.6 gram oral solution Drink 1st bottle at 5pm the evening before colonoscopy, drink 2nd bottle 6 hrs prior colonoscopy, as directed by physician. - Active OR ANY COVERED GENERIC Inflectra 100 mg intravenous solution infuse (10MG/KG) by intravenous route every 8 weeks - Active losartan 25 mg tablet take 1 tablet by oral route every day 25 MG - Active Norvasc 5 mg tablet take 1 tablet by oral route every day 5 MG - Active hydrocodone 10 mg-acetaminophen 325 mg tablet take 1 tablet by oral route every 4 - 6 hours as needed for pain 1.00 tablet - Active trazodone 50 mg tablet take 1 tablet by oral route 4 times every day after meals as needed 50 MG - Active Procedures Procedure Date COLONOSCOPY AND BIOPSY TISSUE EXAM BY PATHOLOGIST OFFICE [id number] BODY MASS INDEX DOCD SYST BP >= 140 MM HG6 IT DIAST BP 80-89 MM HG OFFICE [id number] BODY MASS INDEX DOCD SYST BP >= 140 MM HG6 IT DIAST BP >= 90 MM HG OFFICE [id number] BODY MASS INDEX DOCD SYST BP LT 130 MM HG DIAST BP 80-89 MM HG COLONOSCOPY AND BIOPSY TISSUE EXAM BY PATHOLOGIST OFFICE [id number] BODY MASS INDEX DOCD SYST BP GE 130 - 139MM HG DIAST BP 80-89 MM HG OFFICE [id number] Advance Directives Directive Yes / No Effective Date File Name Life Support Not Answered N/A N/A Intubation Not Answered N/A N/A Antibiotics Not Answered N/A N/A IV Fluid Support Not Answered N/A N/A Tube Feed Not Answered N/A N/A Other Directive N/A N/A WARNING:The information contained in this section is historical and is provided for information only and does not constitute a legal document or any assurance that the information is still accurate. Please verify the information with the agrawal of the legal document before using it for clinical purposes. Encounters Encounter Description Practice Location Reason(s) For Visit Diagnoses Date Provider Providers Copied on Encounter [employer], [address], [place], [place], [id number] , [place] tel: [phone] [facility] No Information 5 Cecilia Rey. [address], [place], [id number] , [place]. tel: [phone] [employer], [address], [place], [place], [address] , [place] tel: [phone] [facility] No Information 5 Cecilia Rey. [address] [place] [address], [id number] , [place]. tel: [phone] [employer], [address], [place], [place], [address] , [place] tel: [phone] [facility] No Information 5 Cecilia Rey. [address] [place] [address], [id number] , [place]. tel: [phone] Referring Provider: Vitaliy Garrett[address], [address]. tel:[phone] [facility], [address], [place], [place], [address] , [place] tel: [phone] [facility] No Information 5 Hal Luna. [address] [place] [address], [address], . tel: [phone] Referring Provider: Candido Brooks, [address] [place] [address], [address] . tel:[phone] [employer], [address], [place], [place], [address] , [place] tel: [phone] [facility] No Information 4 Cecilia Rey. [address] [place] [address], [id number] , [place]. tel: [phone] [employer] [facility], [address], [place], [place], [address] , [place] tel: [phone] [facility] Diarrhea, unspecified type 4 Hung Harris. [address] [place] [address], [id number] , [place]. tel: [phone] OFFICE NNOJU-RWP-OA PANDED [facility], [address], [place], [address] , [place] tel: [phone] [facility] UC (chief complaint) Ulcerative pancolitis without complication 4 Cecilia Rey. [address] [place] [address], [id number] , [place]. tel: [phone] Referring Provider: Vitaliy Garrett, [address] [place] [address], [address]. tel:[phone] [facility], [address], [place], [place], [address] , [place] tel: [phone] [facility] Diarrhea, unspecified type 3 Cecilia Rey. [address] [place] [address], [id number] , [place]. tel: [phone] OFFICE TYBYR-NOH-OJ NAHUM [facility], [address], [place], [place], [address] , [place] tel: [phone] [facility] Colitis (UC) (chief complaint) Ulcerative pancolitis without complicationUmbili janett hernia without obstruction and without gangrene 2 Cecilia Rey. [address] [place] [address], [id number] , [place]. tel: [phone] Referring Provider: Candido Brooks, [address] [place] [address], [address] . tel:[phone] OFFICE PYGHA-MCC-HK LONED [facility], [facility] [address], [place], [place], [address] , [place] tel: [phone] [facility] UC (chief complaint) Ulcerative colitis (chief complaint) Ulcerative pancolitis without complication 2 Hung Harris. [address] [place] [address], [id number] , [place]. tel: [phone] Referring Provider: Vitaliy Garrett, [address] [place] [address], [address]. tel:[phone] [facility], [address], [place], [place], [address] , [place] tel: [phone] [facility] No Information 1 Cecilia Candido. [address] [place] [address], [id number] , [place]. tel: [phone] [facility], [address], [place], [address] , [place] tel: [phone] [facility] No Information 1 Cecilia Rey. [address], [place], [id number] , [place]. tel: [phone] Referring Provider: Vitaliy Garrett, [address] [place] [address], [address]. tel:[phone] [facility], [address], [place], [address] , [place] tel: [phone] [facility] No Information 1 Cecilia Rey. [address], [place], [id number] , [place]. tel: [phone] Referring Provider: Vitaliy Garrett, [address] [place] [address], [facility]. tel:[phone] [facility] [address], [place], [place], [address] , [place] tel: [phone] [facility] Ulcerative pancolitis without complication 1 Hung Harris. [address] [place], [place], [address] , [place]. tel: [phone] OFFICE QICBP-AHV-RN PANDED [facility], [address], [place], [place], [address] , [place] tel: [phone] [facility] Hospital follow up (chief complaint) Ulcerative pancolitis without complicationLiver hemangioma 1 Hung Harris. [address] [place], [place], [address] , [place]. tel: [phone] Referring Provider: Vitaliy Garrett, [address] [place] [address], [address]. tel:[phone] [facility] [address], [place], [place], [address] , [place] tel: [phone] [facility] Abdominal pain, unspecified abdominal location Apr-0 0 Hung Harris. [address] [place], [place], [id number] , [place]. tel: [phone] OFFICE IPOPX-GSN-AP PANDED [facility], [address], [place], [place], [address] , [place] tel: [phone] [facility] Crohn's disease (chief complaint) Ulcerative pancolitis without complicationEpigas tric pain Fe-0 0 Hung Harris. [address] [place], [place], [address] , [place]. tel: [phone] Referring Provider: Vitaliy [address], [address]. tel:[phone] [facility], [address], [place], [place], [address] , [place] tel: [phone] [facility] Ulcerative pancolitis without complication 0 Hung Harris. [address] [place], [place], [address] , [place]. tel: [phone] [facility], [address], [place], [place], [address] , [place] tel: [phone] [facility] Liver cystAbnormal finding on imaging 9 Cecilia Rye. [address], [place], [address] , [place]. tel: [phone] [facility], [address], [place], [place], [address] , [place] tel: [phone] [facility] Ulcerative pancolitis without complicationAbdomi nal pain, unspecified abdominal location 9 Hung Harris. [address] [place], [place], [address] , [place]. tel: [phone] [facility], [address], [place], [place], [address] , [place] tel: [phone] [facility] Follow up (chief complaint) Ulcerative pancolitis without complicationEpigas tric pain 9 Hung Harris. [address] [place], [place], [address] , [place]. tel: [phone] Referring Provider: Vitaliy Garrett, [address] [place] [address], [address]. tel:[phone] [facility], [address], [place], [place], [address] , [place] tel: [phone] [facility] Diarrhea, unspecified type 9 Hung Harris. [address] [place] [address], [id number] , [place]. tel: [phone] [facility], [address], [place], [place], [address] , [place] tel: [phone] [facility] C. difficile colitisUlcerative pancolitis without complication 8 Cecilia Candido. [address] [place] [address], [id number] , [place]. tel: [phone] Referring Provider: Vitaliy Garrett, [address] [place] [address], [address]. tel:[phone] [facility], [address], [place], [place], [address] , [place] tel: [phone] [facility] Diarrhea, unspecified type 8 Hung Harris. [address] [place] [address], [id number] , [place]. tel: [phone] [facility], [address], [place], [place], [address] , [place] tel: [phone] [facility] Ulcerative pancolitis without complication 7 Cecilia Candido. [address] [place] [address], [id number] , [place]. tel: [phone] Referring Provider: Vitaliy Garrett, [address] [place] [address], [address]. tel:[phone] [facility], [address], [place], [place], [address] , [place] tel: [phone] [facility] Ulcerative pancolitis with complication 7 Cecilia Candido. [address] [place] [address], [id number] , [place]. tel: [phone] Referring Provider: Vitaliy Garrett, [address] [place] [address], [address]. tel:[phone] [facility], [address], [place], [place], [address] , tel: [phone] [facility] Ulcerative pancolitis without complication 6 Cecilia Rey. [address] [place] [address] [place], [address] , [place]. tel: [phone] Referring Provider: Vitaliy Garrett, [address] [place] [address], [address]. tel:[phone] [facility], [address], [place], [place], [address] , tel: [phone] [facility] Diarrhea, unspecified type Sep-0 6 Chente De Jesus. [address], [place], [facility], [place]. tel: [phone] [facility], [address], [place], [place], [address] , tel: [phone] [facility] Ulcerative pancolitis without complication Channing-0 6 Chente De Jesus. [address], [place], [address], [place]. tel: [phone] Referring Provider: Vitaliy Garrett, [address] [place] [address], [address]. tel:[phone] [facility], [address], [place], [place], [address] , tel: [phone] [facility] Diarrhea Nov-2 6 Chente De Jesus. [address], [place], [address], [place]. tel: [phone] Family History Family Member Type Diagnosis Age At Onset Problem (finding) No family history of Ca ncer, gastric Problem (finding) No family history of Ul cerative colitis Problem (finding) No family history of Co litis Problem (finding) No family history of Ca ncer, colon Problem (finding) No family history of Ca ncer, esophageal Problem (finding) No family history of Cr ohn's disease Payers Payer name Insurance type Covered republican ID Authoriza tion(s) [employer] CI [id number] MEDICARE MB [id number] Social History Type Description Quantity Date Captured Comments Alcohol Use Details Unknown Caffeine Use Details Unknown Tobacco Use Status No Information Smoking Status No Information Sex Male Chief Complaint And Reason For Visit No Information Reason For Referral Reason For Referral No Information Plan Of Treatment Date Type Action Status Referral Ordered: US Gallbladder ordered Referral Ordered: MRI liver w contrast Appointment date/timeframe: 01/29/2019 ordered History Of Present Illness Encounter Date Complaint History Of Prese nt Illness UC Getting infusion s every 8 weeks. Still on azathioprine. Was doing well until last day or so. Normal formed stool. Last 24 hours multiple bowel movements (formed)Had umbilical hernia repaired in January 2023. Saw surgeon about 2 weeks ago and opened up wound had pus and mesh removed. Put on Clindamycin for 10 days (has completed). Has had Pseudomembranous colitis multiple times in past. Colitis (UC) Colitis symptoms stable . No significant diarrhea, abdominal pain or bleeding. On Inflextra and azathioprine. Getting blood tests next month. Up to date on colonoscopy (Due 2023). Has painful at times umbilical hernia. Discussed surgery. Ulcerative colitis The problem i s without change. There are no associated symptoms. Pertinent negatives include abdominal pain, anorexia, bloating, blood in stool, change in appetite, cramping (abdominal), decreased urine output, distention (abdominal), fecal incontinence, fever, flatulence, joint pain, nausea, rash, tenesmus, vomiting and weight loss. UC 61 year old male that presents for UC. He is currently on azathioprine and inflectra Hospital follow up 60 year old m nu that presents for hospital follow up. He went to the hospital due to abdominal pain and bloody diarrhea. Was admitted and had work up for UC and rule out C Diff. He has been on Remicade for several years and azathioprine. He is feeling better denies pain, and no blood in stools. He is on prednisone taper and was given Bentyl for cramping. Crohn's disease (comments) 58 ye ar old male that presents for Crohn's disease. [place] like lately he has been having increased anxiety attacks. Was admitted and kept for cardiac work up and was normal. Wanted to know is ok to take asa or blood thinners?? Just started on blood pressure medications. Feeling anxious with all the work up he has had. Has had anxiety attacks due to increased work up. Is currently on azathioprine and Remicade. Crohn's disease Follow up Follow up (comments) 57 year old male that presents for UC follow up. Tapering down off prednisone now on 10 mg, just decreased to 10 mg today. Diarrhea improving, having more formed stools. Having some epigastric pain, that is intermittently on PPI. Raw vegetables gave him more trouble. On Remicade every 8 weeks. Functional Status Date Functional Assessmen t No Information Instructions Date Instruction Additional Infor haja Due for colonoscopy in 6 months. Should be getting recall in mailContinue present meds. Call if diarrhea gets worse. Related to Ulcerative pancolitis without complication Handout Call PMD to get refe rral for repair of Umbilical hernia. Related to Umbilical hernia without obstruction and without gangrene Continue present bio logic and azathioprineDue for Colonoscopy in 2023 Related to Ulcerative pancolitis without complication Handout Continue with Inflec tra, and azathioprinePlease fax the latest blood test results to the officeFollow up in the office in one yearYou are due in 2023 for your next colonoscopy Related to Ulcerative pancolitis without complication This was noted on e MRI while you were in the hospital no monitoring is needed Related to Liver hemangioma Continue with the pr ednisoneUse the Bentyl as neededWe are recommending you get scheduled for a colonoscopy, call the office and get this scheduled Related to Ulcerative pancolitis without complication Continue with the om eprazole as you have been Related to Epigastric pain Continue your curren t medicationsFollow up in one year or sooner Related to Ulcerative pancolitis without complication Continue with the Pr evacidAvoid foods that give more symptoms like spicy, greasy foods, tomato based sauces Related to Epigastric pain Continue to wean off of the prednisoneContinue with the Remicade infusions every 8 weeksContinue with the ImuranI am giving you a form to take to a lab for blood test, our office will contact you with the resultsFollow up in the office in one year, or sooner if any new or worsening symptoms. Related to Ulcerative pancolitis without complication Assessments Type Assessment Date No Information Patient Care Teams Name Effective Dates (start - stop) Status Members No Information
--- NOTE | ~2025-05-25 | XR_ITS ---
XR_CERV2-3V_CR Indication: Z98.1 - Arthrodesis status Comparison: None Findings: Anterior fusion of C6, C7 and T1 with disc prosthesis, the hardware is intact. No fracture or subluxation identified Moderate loss of disc height C4-5 C5-6. Soft tissues unremarkable Impression: No acute abnormality. Reviewed, dictated and finalized at location P. Impression: No acute abnormality.
--- OUTSIDE RECORDS SUMMARY | 2025-05-25 09:46 | XMS_ITS | Encounter Summary ---
Author Organization [facility] Address [address] [place] [address] Care Team Providers Care Chief Nursing Executive Name Role Phone Unavailable Primary Care Provider Unavailabl e Encounter Details Date Type Department Care Team (Late st Contact Info) Description 06/09/2020 Lab Requisition [facility] DermPath Lab [address] [place] [phone] Rick Barreto Jr., MD [address] [place] [address] Social History Tobacco Use Types Packs/Day Years [...] AM CDT) Case Report Dermatopathology Report Case: [id number] Authorizing Provider: Rick Barreto Jr., MD Collected: 06/08/2020 12:00 AM Ordering Location: [facility] Lab Received: 06/09/2020 01:18 PM [...] specimen consists of a shave biopsy measuring [id number]. Jar 0. Specimen B: Received is one formalin filled container labeled with the patient's name and designated right proximal ulnar dorsal forearm. The specimen consists of a shave biopsy measuring [id number]. Jar 0. Specimen C: Received is one formalin filled container labeled with the patient's name and designated right distal radial dorsal forearm. The specimen consists of a shave biopsy measuring [id number]. Jar 0. 0 1:25 PM CDT DERMATOPATHOLOGY [...] characteristic determined by the Dermatopathology Laboratory at [facility], directed by Dr. Janeth Snow. These tests need not be, and therefore are not, approved by the [place] Food and Drug Administration. The tests are used for clinical purposes. Billing Codes Specimen Charges Stain Charges 95329 68774 70803 1 1 1 0 1:25 PM CDT [...] LABORATORY [facility] - Department of Dermatology [facility] Medicine [address] [place] [address], [address] [phone] documented in this encounter Visit Diagnoses Not on filedocumented in this encounter
--- OUTSIDE RECORDS SUMMARY | 2025-05-25 09:46 | XMS_ITS | Encounter Summary ---
Author Organization [facility] Address [address] [place] [address] Care Team Providers Care Chronometer Assembler And Adjuster Name Role Phone Unavailable Primary Care Provider Unavailabl e Encounter Details Date Type Department Care Team (Late st Contact Info) Description 05/03/2023 Lab Requisition [facility] - DermPath Lab [address] [facility] [place] [phone] Rick Barreto Jr., MD [address] [facility] [address] [place] [address] Social History Tobacco Use Types Packs/Day Years [...] AM CDT) Case Report Dermatopathology Report Case: [id number] Authorizing Provider: Rick Barreto Jr., MD Collected: 05/01/2023 12:00 AM Ordering Location: [facility] Lab Received: 05/03/2023 10:03 AM Pathologist: [...] joint.The specimen consists of an ellipse measuring [id number] mm and is oriented with the suture/notch [...] purposes. Billing Codes Specimen Charges Stain Charges 12745 1 3 1:14 PM CDT DERMATOPATHOLOGY LABORATORY Embedded Images 3 1:14 PM CDT DERMATOPATHOLOGY LABORATORY Pathology/Cytolog y TISSUE SPECIMEN FROM SKIN / Unknown 05/01/2023 05/03/2023 10:03 AM CDT us Rick Barreto Jr., MD LAB - PATHOLOGY/CYTOLOG Y ORDERABLES Final Result DERMATOPATHOLOGY LABORATORY [facility] - Department of Dermatology [facility] [address] [place] [address], [address] [phone] documented in this encounter Visit Diagnoses Not on filedocumented in this encounter
--- OUTSIDE RECORDS SUMMARY | 2025-05-25 09:46 | XMS_ITS | Clinical Summary ---
Author Organization [facility] Address [address] [place] [address] Care Team Providers Care Collar Folder Operator Name Role Phone Unavailable Primary Care Provider Unavailabl e Source Comments [facility],non-owned Affiliates and Associated Physician Practices is amultiple site organization consisting of ambulatory clinics and hospital sitesin [place], [place], [place] and [place]. This disclosure is being madepursuant to the Care Everywhere program and may not contain all information available regarding this patient. Last updated 18.[facility] Social History Tobacco Use Types Packs/Day Years [...] 2012 ZOSTER VACCINE (1 of 2) 2012 DEPRESSION SCREENING 08/19/2024 COVID-19 VACCINE ( - 2023-2 5 season) 2025 INFLUENZA VACCINE (#1) 2025 Respiratory Syncytial Virus [...] age to complete [place] [address] MEDICARE
--- OUTSIDE RECORDS SUMMARY | 2025-05-25 09:46 | XMS_ITS | Encounter Summary ---
Author Organization [facility] Address [address] [place] [address] Care Team Providers Care Motel Food Service Supervisor Name Role Phone Unavailable Primary Care Provider Unavailabl e Encounter Details Date Type Department Care Team (Late st Contact Info) Description 04/15/2024 Lab Requisition [facility] - DermPath Lab [address] [facility], [place] [phone] Rick Barreto Jr., MD [address] [facility] [address] [place] [address] Social History Tobacco Use Types Packs/Day Years [...] AM CDT) Case Report Dermatopathology Report Case: [id number] Authorizing Provider: Rick Barreto Jr., MD Collected: 04/14/2024 12:00 AM Ordering Location: [facility] Physician [facility] - Received: 04/15/2024 01:09 PM DermPath Lab [...] elbow.The specimen consists of an ellipse measuring 90w64o8 mm and is oriented with the suture/notch [...] characteristic determined by the Dermatopathology Laboratory at [facility], directed by Dr. Janeth Snow. These tests need not be, and therefore are not, approved by the [place] Food and Drug Administration. The tests are used for clinical purposes. Billing Codes Specimen Charges Stain Charges 67247 1 4:14 PM CDT DERMATOPATHOLOGY LABORATORY Embedded Images 4:14 PM CDT DERMATOPATHOLOGY LABORATORY Pathology/Cytolog y TISSUE SPECIMEN FROM SKIN / Unknown 04/14/2024 04/15/2024 1:09 PM CDT us Rick Barreto Jr., MD LAB - PATHOLOGY/CYTOLOG Y ORDERABLES Final Result DERMATOPATHOLOGY LABORATORY [facility] - Department of Dermatology [facility] Medicine [address] [place] [address], [address] [phone] documented in this encounter Visit Diagnoses Not on filedocumented in this encounter
--- OUTSIDE RECORDS SUMMARY | 2025-05-25 09:46 | XMS_ITS | Encounter Summary ---
Author Organization [facility] Address 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
--- OUTSIDE RECORDS SUMMARY | 2025-05-25 09:46 | XMS_ITS | Clinical Summary ---
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
--- OUTSIDE RECORDS SUMMARY | 2025-05-25 09:46 | XMS_ITS | Encounter Summary ---
Author Organization [facility] Address [address] [place] [address] Care Team Providers Care Respiratory Assistant Name Role Phone Unavailable Primary Care Provider Unavailabl e Encounter Details Date Type Department Care Team (Late st Contact Info) Description 07/07/2020 Lab Requisition [facility] DermPath Lab [address] [facility] [place] [phone] Rick Barreto Jr., MD [address] [facility] [address] [place] [address] Social History Tobacco Use Types Packs/Day Years [...] Comments DERMATOPATHOLOGY Routine 07/06/2020 12:0 0 AM BOOK EDITOR documented in this encounter Results * DERMATOPATHOLOGY (07/06/2020 12:00 AM BOOK EDITOR) Case Report Dermatopathology Report Case: [id number] Authorizing Provider: Rick Barreto Jr., MD Collected: 07/06/2020 12:00 AM Ordering Location: [facility] DermPath Lab Received: 07/07/2020 12:59 PM Pathologist: Mansi Dominguez MD Specimens: A) - Skin, right distal radial dorsal forearm B) - Skin, right radial dorsal hand C) - Skin, right ulnar dorsal hand 0 6:46 PM BOOK EDITOR DERMATOPATHOLOGY LABORATORY Final Diagnosis Specimen A. SKIN, [...] microscopic description and comment) 0 6:46 PM [facility] DERMATOPATHOLOGY LABORATORY at 1845 BOOK EDITOR Clinical History A: Squamous cell carcinoma. Check margins. Previous Bx: [id number]. B-C: Squamous cell carcinoma vs actinic keratosis. . 0 6:46 PM [facility] DERMATOPATHOLOGY LABORATORY Gross Description Specimen A: Received is one formalin filled container labeled with the patient's name and designated right distal radial dorsal forearm.The specimen consists of an ellipse measuring 85p33v4sm and is oriented with the notch at [...] specimen consists of a shave biopsy measuring 19j5n9sz. Jar 0. Specimen C: Received is one formalin filled container labeled with the patient's name and designated right ulnar dorsal hand. The specimen consists of a shave biopsy measuring 23v2t5mo. Jar 0. 0 6:46 PM [facility] DERMATOPATHOLOGY LABORATORY Microscopic Description Specimen A. [...] cannot be ruled out. 0 6:46 PM BOOK EDITOR DERMATOPATHOLOGY LABORATORY Disclaimer An external and internal positive and negative controls are appropriate for the histochemical, immunohistochemical and immunofluorescence stain(s) in this case (if any), except where stated explicitly. The performance characteristics of the stain(s) cited in this report were developed and its performance characteristic determined by the Dermatopathology Laboratory at [facility], directed by Dr. Janeth Snow. These tests need not be, and therefore are not, approved by the [place] Food and Drug Administration. The tests are used for clinical purposes. Billing Codes Specimen Charges Stain Charges 53445 73741 93761 1 1 1 0 6:46 PM BOOK EDITOR DERMATOPATHOLOGY LABORATORY Embedded Images 0 6:46 PM BOOK EDITOR DERMATOPATHOLOGY LABORATORY Pathology/Cytology TISSUE SPECIMEN FROM SKIN / Unknown 07/06/2020 07/07/2020 12:59 PM BOOK EDITOR Miscellaneous samples (specimen) TISSUE SPECIMEN FROM SKIN / Unknown 07/06/2020 07/07/2020 12:59 PM BOOK EDITOR Miscellaneous samples (specimen) TISSUE SPECIMEN FROM SKIN / Unknown 07/06/2020 07/07/2020 12:59 PM BOOK EDITOR us Rick Barreto Jr., MD LAB - PATHOLOGY/CYTOLOG Y ORDERABLES Final Result DERMATOPATHOLOGY LABORATORY [facility] - Department of Dermatology [address] [place] [address], [facility] [phone] documented in this encounter Visit Diagnoses Not on filedocumented in this encounter
--- OUTSIDE RECORDS SUMMARY | 2025-05-25 09:46 | XMS_ITS | Encounter Summary ---
Author Organization [facility] Address [address] [place] [address] Care Team Providers Care Television Actor Name Role Phone Unavailable Primary Care Provider Unavailabl e Encounter Details Date Type Department Care Team (Late st Contact Info) Description 10/16/2023 Lab Requisition [facility] - DermPath Lab [address] [facility], [place] [phone] Rick Barreto Jr., MD [address] [facility] [address] [place] [address] Social History Tobacco Use Types Packs/Day Years [...] Comments DERMATOPATHOLOGY Routine 10/15/2023 12:0 0 AM MENTAL MEASUREMENTS TEACHER documented in this encounter Results * DERMATOPATHOLOGY (10/15/2023 12:00 AM MENTAL MEASUREMENTS TEACHER) Case Report Dermatopathology Report Case: [id number] Authorizing Provider: Rick Barreto Jr., MD Collected: 10/15/2023 12:00 AM Ordering Location: [facility] DermPath Lab Received: 10/17/2023 06:45 AM Pathologist: Keshia Dominguez MD Specimens: A) - Skin, left mid-upper back B) - Skin, right ulnar dorsal hand 12:12 PM MENTAL MEASUREMENTS TEACHER DERMATOPATHOLOGY LABORATORY Final Diagnosis Specimen A. SKIN, left mid-upper back: BASAL CELL CARCINOMA, SUPERFICIAL MULTIFOCAL (C44.519) Specimen B. SKIN, right ulnar dorsal hand: SQUAMOUS CELL CARCINOMA, WELL DIFFERENTIATED (C44.622) 12:12 PM MENTAL MEASUREMENTS TEACHER DERMATOPATHOLOGY LABORATORY at 1212 MENTAL MEASUREMENTS TEACHER Clinical History A: Basal Cell Carcinoma. B: Squamous Cell Carcinoma 12:12 PM [facility] DERMATOPATHOLOGY LABORATORY Gross Description Specimen [...] measuring 10x9x3 mm. Jar 0. 12:12 PM [facility] DERMATOPATHOLOGY LABORATORY Microscopic Description Specimen [...] are scattered throughout the proliferation. 12:12 PM [facility] DERMATOPATHOLOGY LABORATORY Disclaimer An external and internal positive and negative controls are appropriate for the histochemical, immunohistochemical and immunofluorescence stain(s) in this case (if any), except where stated explicitly. The performance characteristics of the stain(s) cited in this report were developed and its performance characteristic determined by the Dermatopathology Laboratory at [facility], directed by Dr. Janeth Snow. These tests need not be, and therefore are not, approved by the [place] Food and Drug Administration. The tests are used for clinical purposes. Billing Codes Specimen Charges Stain Charges 49268 64752 1 1 12:12 PM [facility] DERMATOPATHOLOGY LABORATORY Embedded Images 12:12 PM [facility] DERMATOPATHOLOGY LABORATORY Pathology/Cytology TISSUE SPECIMEN FROM SKIN / Unknown 10/15/2023 10/17/2023 6:45 AM MENTAL MEASUREMENTS TEACHER Miscellaneous samples (specimen) TISSUE SPECIMEN FROM SKIN / Unknown 10/15/2023 10/17/2023 6:45 AM MENTAL MEASUREMENTS TEACHER Rick Barreto Jr., MD LAB - PATHOLOGY/CYTOLOG Y ORDERABLES Final Result DERMATOPATHOLOGY LABORATORY [facility] - Department of Dermatology [facility] Medicine [address] [place] [address], [address] [phone] documented in this encounter Visit Diagnoses Not on filedocumented in this encounter
--- OUTSIDE RECORDS SUMMARY | 2025-05-25 09:46 | XMS_ITS | Encounter Summary ---
Author Organization [facility] Address [address] [place] [address] Care Team Providers Care Assembler Golf Wood Head Name Role Phone Unavailable Primary Care Provider Unavailabl e Encounter Details Date Type Department Care Team (Late st Contact Info) Description 08/15/2020 Lab Requisition [facility] DermPath Lab [address] [facility] [place] [phone] Rick Barreto Jr., MD [address] [facility] [address] [place] [address] Social History Tobacco Use Types Packs/Day Years [...] Comments DERMATOPATHOLOGY Routine 08/10/2020 12:0 0 AM INFORMATION TECHNOLOGY AUDITOR documented in this encounter Results * DERMATOPATHOLOGY (08/10/2020 12:00 AM INFORMATION TECHNOLOGY AUDITOR) Case Report Dermatopathology Report Case: [id number] Authorizing Provider: Rick Barreto Jr., MD Collected: 08/10/2020 12:00 AM Ordering Location: [facility] DermPath Lab Received: 08/15/2020 12:01 PM Pathologist: Sonia Snow MD Specimen: Skin, right ulnar dorsal hand 0 4:28 PM INFORMATION TECHNOLOGY AUDITOR DERMATOPATHOLOGY LABORATORY Final Diagnosis Specimen A. SKIN, right ulnar dorsal hand: SQUAMOUS CELL CARCINOMA IN SITU (VALENCIA'S DISEASE) (D04.71) NOT PRESENT AT MARGIN DERMAL SCAR (L90.5) 0 4:28 PM INFORMATION TECHNOLOGY AUDITOR DERMATOPATHOLOGY LABORATORY at 1628 INFORMATION TECHNOLOGY AUDITOR Clinical History Squamous cell carcinoma in situ. Check margins. Previous Bx: [id number]. . 0 4:28 PM [facility] DERMATOPATHOLOGY LABORATORY Gross Description Specimen A: Received is one formalin filled container labeled with the patient's name and designated right ulnar dorsal hand.The specimen consists of an ellipse measuring 99y94x7cz and is oriented with the notch at the 12 o'clock position labeled on the requisition as notch at 12 o'clock. The epidermal surface consists of a centrally located 10e06br lesion. The 12 to 6 o'clock margin is inked green. The 6 o'clock to 12 o'clock margin is inked black. The 12 o'clock tip is submitted in cassette 1. The 6 o'clock tip is submitted in cassette 2. The remainder of the ellipse is serially sectioned and submitted in cassettes 3-4. Jar 0. 0 4:28 PM [facility] DERMATOPATHOLOGY LABORATORY Microscopic Description Specimen A. SKIN, [...] to the skin surface. 0 4:28 PM [facility] DERMATOPATHOLOGY LABORATORY Disclaimer An external and internal positive and negative controls are appropriate for the histochemical, immunohistochemical and immunofluorescence stain(s) in this case (if any), except where stated explicitly. The performance characteristics of the stain(s) cited in this report were developed and its performance characteristic determined by the Dermatopathology Laboratory at [facility], directed by Dr. Janeth Snow. These tests need not be, and therefore are not, approved by the [place] Food and Drug Administration. The tests are used for clinical purposes. Billing Codes Specimen Charges Stain Charges 89115 1 0 4:28 PM [facility] DERMATOPATHOLOGY LABORATORY Embedded Images 0 4:28 PM [facility] DERMATOPATHOLOGY LABORATORY Pathology/Cytolog y TISSUE SPECIMEN FROM SKIN / Unknown 08/10/2020 08/15/2020 12:01 PM INFORMATION TECHNOLOGY AUDITOR us Rick Barreto Jr., MD LAB - PATHOLOGY/CYTOLOG Y ORDERABLES Final Result DERMATOPATHOLOGY LABORATORY [facility] - Department of Dermatology [facility] Medicine [address] [place] [address], [address] [phone] documented in this encounter Visit Diagnoses Not on filedocumented in this encounter
--- OUTSIDE RECORDS SUMMARY | 2025-05-25 09:46 | XMS_ITS | Clinical Summary ---
Author Organization [facility] Address [address] [facility] [place] [address] Phone Care Team Providers Care Drawer Upfitter Name Role Phone Vitaliy Garrett MD Primary Care Provider [phone] Roby Gaxiola MD Unavailable Allergies No known [...] - Risk 60-74 years 1-dose series) 2022 Influenza Immunization (#1) 2025 SARS-COV-2 Immunization ( season) 2025 07/19/2021, 11/16/2020 DTaP/Tdap/Td Immunization Discontinued 2022, 02/01/2017 TdaP Immunization [...] age to complete this topic Insurance MEDICARE [facility] Care Teams Drawer Upfitter Relationship Specialty Start Date End Date Vitaliy Garrett MD [address] [place] [id number] PCP - General Internal Medicine 06/10/17 Roby Gaxiola MD [address] [place] [phone] Consulting Physician Pulmonary Disease 05/25/23
--- OUTSIDE RECORDS SUMMARY | 2025-05-25 09:46 | XMS_ITS | Encounter Summary ---
Author Organization [facility] Address [address] [place] [address] Care Team Providers Care Groundskeeper Porter Name Role Phone Unavailable Primary Care Provider Unavailabl e Encounter Details Date Type Department Care Team (Late st Contact Info) Description 02/12/2024 Lab Requisition [facility] - DermPath Lab [address] [facility] [place] [phone] Rick Barreto Jr., MD [address] [facility] [address] [place] [address] Social History Tobacco Use Types Packs/Day Years [...] AM CDT) Case Report Dermatopathology Report Case: [id number] Authorizing Provider: Rick Barreto Jr., MD Collected: 02/11/2024 12:00 AM Ordering Location: [facility] Physician [facility] - Received: 02/12/2024 12:52 PM DermPath [...] hand.The specimen consists of an ellipse measuring 99r54t4 mm and is oriented with the suture/notch [...] specimen consists of a shave biopsy measuring 02u91m9 mm. Jar 0. 4 3:51 PM CDT [...] characteristic determined by the Dermatopathology Laboratory at [facility], directed by Dr. Janeth Snow. These tests need not be, and therefore are not, approved by the [place] Food and Drug Administration. The tests are used for clinical purposes. Billing Codes Specimen Charges Stain Charges 99844 19269 1 1 4 3:51 PM CDT DERMATOPATHOLOGY LABORATORY Embedded Images 4 3:51 PM CDT DERMATOPATHOLOGY LABORATORY Pathology/Cytology TISSUE SPECIMEN FROM SKIN / Unknown 02/11/2024 02/12/2024 12:52 PM CDT Miscellaneous samples (specimen) TISSUE SPECIMEN FROM SKIN / Unknown 02/11/2024 02/12/2024 12:52 PM CDT Rick Barreto Jr., MD LAB - PATHOLOGY/CYTOLOG Y ORDERABLES Final Result DERMATOPATHOLOGY LABORATORY [facility] - Department of Dermatology [facility] Medicine [address] [place] [address], [address] [phone] documented in this encounter Visit Diagnoses Not on filedocumented in this encounter
--- OUTSIDE RECORDS SUMMARY | 2025-05-25 09:46 | XMS_ITS | Encounter Summary ---
Author Organization [facility] Address [address] [place] [address] Care Team Providers Care Chief Lock Tender Operator Name Role Phone Unavailable Primary Care Provider Unavailabl e Encounter Details Date Type Department Care Team (Late st Contact Info) Description 08/15/2020 Lab Requisition [facility] DermPath Lab [address] [facility] [place] [phone] Rick Barreto Jr., MD [address] [facility] [address] [place] [address] Social History Tobacco Use Types Packs/Day Years [...]
--- OUTSIDE RECORDS SUMMARY | 2025-05-25 09:46 | XMS_ITS | Encounter Summary ---
Author Organization [facility] Address [address] [place] [address] Care Team Providers Care Special Education Director Name Role Phone Unavailable Primary Care Provider Unavailabl e Encounter Details Date Type Department Care Team (Late st Contact Info) Description 03/14/2023 Lab Requisition [facility] D[facility] Lab [address] [facility] [place] [phone] Rick Barreto Jr., MD [address] [facility] [address] [place] [address] Social History Tobacco Use Types Packs/Day Years [...] AM CDT) Case Report Dermatopathology Report Case: [id number] Authorizing Provider: Rick Barreto Jr., MD Collected: 03/13/2023 12:00 AM Ordering Location: [facility] DermPath Lab Received: 03/14/2023 12:03 PM Pathologist: [...] specimen consists of a shave biopsy measuring 10i65j5 mm. Jar 0. 3 2:16 PM CDT [...] characteristic determined by the Dermatopathology Laboratory at [facility], directed by Dr. Janeth Snow. These tests need not be, and therefore are not, approved by the [place] Food and Drug Administration. The tests are used for clinical purposes. Billing Codes Specimen Charges Stain Charges 29702 1 3 2:16 PM CDT DERMATOPATHOLOGY LABORATORY Embedded Images 3 2:16 PM CDT DERMATOPATHOLOGY LABORATORY Pathology/Cytolog y TISSUE SPECIMEN FROM SKIN / Unknown 03/13/2023 03/14/2023 12:03 PM CDT us Rick Barreto Jr., MD LAB - PATHOLOGY/CYTOLOG Y ORDERABLES Final Result DERMATOPATHOLOGY LABORATORY [facility] - Department of Dermatology [address] [place] [address], [facility] [phone] documented in this encounter Visit Diagnoses Not on filedocumented in this encounter
== END 2025-05-25 09:17 | disposition home or self-care (01) ==
PROVIDERS: Visit Provider Nurse Practitioner Adult Health
DX: Z98.1 Arthrodesis status (principal)
CPT/HCPCS: 72040